=== PATIENT | female | born 1965 | race Caucasian/White ===

== ENCOUNTER 2019-06-30 17:12 | Emergency (ER) | payer OTHER, SELFPAY ==
--- NOTE | ~2019-06-30 | XR_ITS ---
EXAMINATION: XR hip LT 2V w AP pelvis INDICATION: Left hip pain TECHNIQUE: AP view the pelvis and two views of the left hip are obtained. COMPARISON: None available FINDINGS: Bone alignment is normal. There is no fracture. The soft tissues are unremarkable. IMPRESSION: 1. No acute osseous abnormality. Reviewed, dictated and finalized at location A.
--- NOTE | ~2019-06-30 | XR_ITS ---
EXAMINATION: XR foot LT min 3V DATE: 06/30/2019 18:35 INDICATION: Left foot pain TECHNIQUE: Dorsoplantar, lateral, and 2 oblique views of the left foot were obtained. COMPARISON: None. FINDINGS: A subtle heterotopic ossification is seen lateral to the proximal aspect of the cuboid. Bon e alignment is normal. The soft tissues are unremarkable. IMPRESSION: 1. Subtle osseous fragment near the lateral aspect of the cuboid which may reflect avulsion injury. Reviewed, dictated and finalized at location A. IMPRESSION: 1. Subtle osseous fragment near the lateral aspect of the cuboid which may refl ect avulsion injury.
--- NOTE | ~2019-06-30 | XR_ITS ---
EXAMINATION: XR ankle LT min 3V DATE: 06/30/2019 17:53 INDICATION: Left ankle pain TECHNIQUE: Anteroposterior, lateral, mortise, and additional oblique view of the ankle were obtained. COMPARISON: None. FINDINGS: There is no fracture, dislocation, or subluxation. The bones, soft tissues, and joint space s are normal. IMPRESSION: 1. No acute osseous abnormality. Reviewed, dictated and finalized at location A.
[2019-06-30 17:16] VITALS: BP 124/75; PULSE 96; RESP 16; TEMP 36.8; O2SAT 95
[2019-06-30 19:17] LABS: Basophils Absolute Auto 0.1 K/mm3 (0.0-0.1); Basophils Percent Auto 0.9 % (0.2-1.2); Eosinophils Absolute Auto 0.3 K/mm3 (0-0.3); Eosinophils Percent Auto 3.7 % (0-4.4); Hematocrit 39.3 % (37.0-47.0); Hemoglobin 13.1 g/dL (12.0-15.0); Immature Granulocyte Absolute 0.03 K/mm3 (0.00-0.031); Immature Granulocyte Percent A 0.4 % (0-0.5); Lymphocytes Percent Auto 32.6 % (18.3-44.2); Mean Corpuscular HGB Conc 33.3 g/dl (32-36); Mean Corpuscular Volume 95.9 fl (80-100); Mean Platelet Volume 9.6 fl (7.4-10.4); Monocytes Absolute Auto 0.5 K/mm3 (0.1-0.6); Monocytes Percent Auto 7.9 % (2.6-8.5); Neutrophils Absolute Auto 3.7 K/mm3 (1.3-6.7); Neutrophils Percent Auto 54.5 % (45.5-73.1); Platelet Count Result 233 k/mm3 (150-375); Red Cell Distribution Width 13.8 % (11.5-14.5); White Blood Count 6.7 K/mm3 (4.5-10.0)
[2019-06-30 19:29] LABS: D Dimer 0.31 ug/mL (<0.48)
[2019-06-30 19:35] LABS: Blood Urea Nitrogen 12 mg/dL (7-17); CRP < 0.5 mg/dL (<1.0); Calcium 8.7 mg/dL (8.4-10.2); Carbon Dioxide 30 mmol/L (22-30); Chloride 100 mmol/L (98-107); Estimated CRCL calculation 62 ml/min; Estimated Glomerular Filt Rate > 60; Glucose 80 mg/dL (65-105); Potassium 3.5 mmol/L (3.4-5.0); Sodium 137 mmol/L (137-145)
[2019-06-30 19:52] LABS: Erythrocyte Sedimentation Rate 14 mm/hr (0-20)
--- NOTE | 2019-06-30 20:57 | ED.LOWEXIN ---
HPI - Extremity Injury (Lower) General Chief Complaint: Extremity Injury, Lower Stated Complaint: left foot injury Time Seen by Provider: 06/30/19 17:39 Source: patient Mode of arrival: ambulatory Limitations: no limitations History of Present Illness HPI Narrative: This is a 54-year-old female that presents the emergency department after fall a week ago with left ankle pain. Reports she tripped going up the steps. Reports since she has had increasing swelling and pain in the left foot and ankle. Also reports left hip pain. She has been using a cane to ambulate. Denies hitting her head, loss of consciousness, other injuries, numbness, or decreased range of motion. Related Data Home Medications Medication Instructions Recorded Confirmed albuterol sulfate INHALATION 06/30/19 budesonide-formoterol [Symbicort] INHALATION 06/30/19 escitalopram oxalate mg 06/30/19 gabapentin 06/30/19 montelukast mg 06/30/19 tiotropium bromide [Spiriva with INHALATION 06/30/19 HandiHaler] trazodone 06/30/19 Allergies Allergy/AdvReac Type Severity Reaction Status Date / Time No Known Allergies Allergy Verified 06/30/19 17:22 Review of Systems Review of Systems: Narrative: CONSTITUTIONAL: Denies fever EYES: Denies visual changes GASTROINTESTINAL: Denies vomiting SKIN: Reports erythema MUSCULOSKELETAL: Reports joint pain, and myalgia. NEUROLOGIC: Denies headache, numbness, or weakness. All systems reviewed & are unremarkable except as noted in HPI and below PMFSH Past Medical History Medical History (Updated 06/30/19 @ 21:04 by Stefany Potter PA-C) History of COPD History of depression Exam Narrative: Exam Narrative: GENERAL: Well-appearing, well-nourished, and in no acute distress. HEAD: Normocephalic, atraumatic. EYES: PERRLA and EOMI. ENT: Nares clear, no rhinorrhea or epistaxis. Mucous membranes moist. Oropharynx without tonsillar hypertrophy exudate or other lesions. Bilateral TMs pearly merlos non-bulging NECK: Supple. No adenopathy or masses. No midline spinal tenderness CHEST: Clear to auscultation. No respiratory distress. No wheezes rales or rhonchi HEART: Regular rate and rhythm. No murmur heard. Normal peripheral pulses. BACK: No midline spinal tenderness EXTREMITIES: Normal range of motion. Mild edema to the left ankle and foot. Mild erythema to the left lateral malleoli. Normal sensation. Normal DP pulses SKIN: Warm, dry, no rash. NEURO: No focal deficits. Alert and oriented x3. PSYCH: Normal mood and affect Course Consultations Consultation #1: Spoke with Dr. Britt about patient who reports patient may be placed in a postop shoe and given crutches. She can follow-up with her primary care doctor. Date: 06/30/19 Time: 21:03 Vital Signs Vital signs: Vital Signs Temperature 98.2 F 06/30/19 17:16 Pulse Rate 96 06/30/19 17:16 Respiratory Rate 16 06/30/19 17:16 Blood Pressure 124/75 06/30/19 17:16 Pulse Oximetry 95 06/30/19 17:16 Temperature 98.2 F 06/30/19 17:16 Pulse Rate 96 06/30/19 17:16 Respiratory Rate 16 06/30/19 17:16 Blood Pressure 124/75 06/30/19 17:16 Pulse Oximetry 95 06/30/19 17:16 MDM - Extremity Injury (Lower) MDM Narrative Medical decision making narrative: Patient presents to the emergency department after an injury 1 week ago with left ankle and left hip pain. Patient is afebrile and nontoxic-appearing. CBC without acute changes. Inflammatory markers are not elevated. D-dimer is not elevated. Left ankle x-rays without acute osseous abnormality. Left foot x-ray shows a subtle osseous fragment at the lateral aspect of the cuboid which may reflect avulsion injury. Left hip/pelvis x-rays without acute changes. Spoke with Dr. Britt about patient who reports patient may be placed in a postop shoe and given crutches. She can follow-up with her primary care doctor. Patient also will be started on oral antibiotic for cellulitis. Patient is
[2019-06-30 21:30] VITALS: BP 104/66; PULSE 87; RESP 16; TEMP 37.1; O2SAT 96
== END 2019-06-30 21:47 | disposition home or self-care (01) ==
PROVIDERS: Physician Assistant; Emergency Provider Emergency Medicine
DX: S93.402A Sprain of unspecified ligament of left ankle, initial encounter (principal); S96.912A Strain of unspecified muscle and tendon at ankle and foot level, left foot, initial encounter; L03.116 Cellulitis of left lower limb; J44.9 Chronic obstructive pulmonary disease, unspecified; F32.9 Major depressive disorder, single episode, unspecified; W10.9XXA Fall (on) (from) unspecified stairs and steps, initial encounter
CPT/HCPCS: 36415; 73502; 73610; 73630; 80048; 85025; 85380; 85652; 86140; 99284; A9270

== ENCOUNTER 2020-05-10 17:15 | Emergency (ER) | payer OTHER, SELFPAY ==
--- NOTE | ~2020-05-10 | XR_ITS ---
EXAMINATION: XR pelvis 1-2V INDICATION: Low back pain TECHNIQUE: AP view the pelvis is obtained. COMPARISON: CT, 10/23/2016 FINDINGS: Bone alignment is normal. There is no fracture. There is mild osteoarthritis of the hips. T he soft tissues are unremarkable. The visualized bowel gas pattern is normal. A moderate volume of co lonic stool is present. IMPRESSION: 1. No fracture identified. Reviewed, dictated and finalized at location A. IMPRESSION: 1. No fracture identified.
--- NOTE | ~2020-05-10 | XR_ITS ---
EXAMINATION: XR lumbar spine 2-3V DATE: 05/10/2020 18:02 INDICATION: Low back pain TECHNIQUE: Anteroposterior and lateral views of the lumbar spine, and cone-down lateral view of the l umbosacral junction were obtained. COMPARISON: CT, 10/23/2016 FINDINGS: There is a superior endplate deformity of L3 vertebral body with approximately 10% loss of anterior vertebral body height. The remaining vertebral body heights are normal. Bone alignment is ma intained. The intervertebral disc space heights are normal. Calcified atherosclerosis is noted. Surgi josé luis clips in the right upper quadrant are likely from prior cholecystectomy. IMPRESSION: 1. Age-indeterminate L3 vertebral body compression fracture, possibly acute, new since the comparison examination. Reviewed, dictated and finalized at location A. IMPRESSION: 1. Age-indeterminate L3 vertebral body compression fracture, possibly acute, ne w since the comparison examination.
[2020-05-10 17:23] VITALS: BP 107/73; PULSE 111; RESP 18; TEMP 36.4; O2SAT 93
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
== END 2020-05-10 18:31 | disposition home or self-care (01) ==
PROVIDERS: Emergency Provider Nurse Practitioner
DX: S32.030A Wedge compression fracture of third lumbar vertebra, initial encounter for closed fracture (principal); V48.5XXA Car driver injured in noncollision transport accident in traffic accident, initial encounter; J44.9 Chronic obstructive pulmonary disease, unspecified; Z85.118 Personal history of other malignant neoplasm of bronchus and lung; Z90.2 Acquired absence of lung [part of]; F41.9 Anxiety disorder, unspecified; F32.9 Major depressive disorder, single episode, unspecified; Z86.73 Personal history of transient ischemic attack (TIA), and cerebral infarction without residual deficits; Z92.21 Personal history of antineoplastic chemotherapy; Z92.3 Personal history of irradiation
CPT/HCPCS: 72100; 72170; 99213; G0463

== ENCOUNTER 2021-04-18 11:43 | Inpatient (IN) | payer OTHER, SELFPAY ==
[2021-04-18] VITALS (26 sets, daily range): BP systolic 94–113; BP diastolic 58–78; PULSE 86–104; RESP 16–30; TEMP 35.8–37.2; O2SAT 81–100; BMI 18.6
--- NOTE | ~2021-04-18 | XR_ITS ---
EXAMINATION: XR chest 1V portable DATE: 04/20/2021 10:45 INDICATION: Shortness of breath TECHNIQUE: frontal view of the chest was obtained. COMPARISON: Chest radiograph dated 04/18/2021 FINDINGS: Hyperexpansion of lungs with increased lucency and architectural distortion in the upper lung zones c onsistent with emphysema. Suture line and surgical clips in the left upper lung zone consistent with prior partial pneumonectomy. New nodular opacity projecting over the left costophrenic angle likely r epresenting a nipple shadow. Calcified nodules in the right midlung zone and calcified right hilar an d mediastinal lymph nodes consistent with old granulomatous disease. Increased interstitial pattern i n the mid and lower lung zones with a few peripheral Xavier B-lines consistent with mild pulmonary ed gee. No pleural effusion or pneumothorax. Heart size is normal. IMPRESSION: 1. Mild pulmonary edema superimposed over emphysema. 2. Nodular opacity projecting over the left costophrenic angle not evident on the recent prior imagin g most consistent with a nipple shadow. Reviewed, dictated and finalized at location A. IMPRESSION: 1. Mild pulmonary edema superimposed over emphysema. 2. Nodular opacity projecting over the left costophrenic angle not evident on t he recent prior imaging most consistent with a nipple shadow.
--- NOTE | ~2021-04-18 | XR_ITS ---
XR chest 1V portable 04/18/2021 12:50 Indication: AP portable chest Procedure: Comparison to multiple prior studies sequentially, with oldest reviewed study dated 2017. Comparison: Comparison to multiple prior studies sequentially, with oldest reviewed study dated 06/28. Findings: There is interstitial edema. Cannot exclude superimposed pneumonia. There is emphysema. No significant effusion or pneumothorax. There are surgical changes in the left upper lung. Impression: 1: Interstitial edema. Cannot exclude superimposed pneumonia. Reviewed, dictated and finalized at location B. Impression: 1: Interstitial edema. Cannot exclude superimposed pneumonia.
--- NOTE | 2021-04-18 11:59 | PC.NURSE ---
Multiple RN tried for IV access and unsuccessful. Ultrasound certified RN at bedside at this time for IV placement.
--- NOTE | 2021-04-18 12:05 | ECG_ITS ---
Measurements Intervals [place] Rate: 95 P: 80 VT: 149 QRS: 59 QRSD: 74 T: 77 QT: 342 QTc: 430 Interpretive Statements SINUS RHYTHM POSSIBLE RIGHT ATRIAL ENLARGEMENT [0.25mV P WAVE] COMPARED TO ECG 08/16/2018 20:02:27 NO SIGNIFICANT CHANGE Electronically Signed On 04-18-2021 14:31:06 CDT by Russell Linda M.D.
--- NOTE | 2021-04-18 12:06 | ED.SOB ---
HPI - SOB/Dyspnea General Chief Complaint: Shortness of Breath/Dyspnea Stated Complaint: dyspnea, chest pain on inspiration Time Seen by Provider: 04/18/21 12:01 Source: RN notes reviewed History of Present Illness HPI Narrative: Patient presents emergency department from home for weakness. Patient states she has not been feeling well for the past 1 week she states has been associated with intermittent headaches subjective fevers, cough productive of yellow sputum intermittent chest pain described as sharp and stabbing and nausea patient states that symptoms have been ongoing for 1 week but she got up and was walking around today and felt more short of breath and came in for further evaluation she denies any measured fevers she states that she has not had a Covid or flu vaccine this year she denies any vomiting diarrhea or any other symptoms patient states she has a history of lung cancer in remission Related Data Home Medications Medication Instructions Recorded Confirmed albuterol sulfate 2 inh INHALATION DIRECTED 06/30/19 05/10/20 budesonide-formoterol [Symbicort] 1 inh INHALATION DIRECTED 06/30/19 05/10/20 escitalopram oxalate 10 mg PO DAILY 06/30/19 05/10/20 montelukast 10 mg PO DAILY 06/30/19 05/10/20 trazodone 50 mg PO DAILY 06/30/19 05/10/20 albuterol sulfate 1.25 mg INHALATION DIRECTED 05/10/20 05/10/20 famotidine 20 mg PO DAILY 05/10/20 05/10/20 Allergies Allergy/AdvReac Type Severity Reaction Status Date / Time adhesive tape AdvReac Rash Verified 04/18/21 11:55 morphine AdvReac Vomiting Verified 04/18/21 11:55 Review of Systems Review of Systems: Gen.: Reports subjective fevers ENT: Denies congestion Respiratory: Ports shortness of breath and cough CV: Ports intermittent chest pain denies palpitations GI: Denies abdominal pain vomiting or diarrhea reports nausea Musculoskeletal: Denies back pain or muscle pain Neuro: Reports generalized weakness Skin: Denies rash Except as documented, all other systems reviewed and negative PMFSH Past Medical History Medical History Acquired absence of lung [part of] Anxiety disorder Asthma Bipolar disorder Compression of trachea due to food in esophagus History of COPD History of depression History of pleural effusion Malignant neoplasm of unspecified part of unspecified bronchus or lung Personal history of antineoplastic chemotherapy Personal history of irradiation Pleurodynia Tachycardia TIA (transient ischemic attack) White matter disease Social History Social History (Updated 04/18/21 @ 12:08 by Altaf Saunders DO) Smoking status: Former smoker Exam Narrative: APPEARANCE: No acute distress, nontoxic, resting in bed EYES: EOMI HEENT: Normocephalic, atraumatic, OMM RESPIRATORY: No respiratory distress Clear to auscultation bilaterally with no rhonchi wheezing or rales. CARDIOVASCULAR: Regular rate and rhythm without murmurs rubs or gallops. ABDOMINAL: Soft, nontender, nondistended, no rebound or guarding MUSCULOSKELETAl: Moves all extremities. No clubbing, cyanosis or edema. NEURO: Awake and alert. Following commands, speech normal, no focal deficits SKIN:: Warm, dry. No rashes lesions or abrasions PSYCHIATRIC: Normal affect/mood, Course Course Emergency Course: Discussed with [facility] [place] for Dr Massey agrees with admission Discussed with patient and family results of workup and diagnosis. Discussed need for admission. Patient and family understand and agree to current treatment plan Vital Signs Vital signs: Vital Signs Pulse Rate 98 04/18/21 11:36 Respiratory Rate 30 H 04/18/21 11:36 Blood Pressure 100/78 04/18/21 11:36 Pulse Oximetry 97 04/18/21 11:36 Pulse Rate 90 04/18/21 13:27 Respiratory Rate 26 H 04/18/21 13:27 Blood Pressure 104/68 04/18/21 13:27 Pulse Oximetry 97 04/18/21 13:27 MDM - SOB/Dyspnea Lab Data Result diagrams: 04/18/21 12:22
[2021-04-18 12:29] LABS: Basophils Absolute Auto 0.1 K/mm3 (0.0-0.1); Basophils Percent Auto 0.3 % (0.2-1.2); Eosinophils Absolute Auto 0.1 K/mm3 (0-0.3); Eosinophils Percent Auto 0.3 % (0-4.4); Hematocrit 48.7 % (37.0-47.0); Hemoglobin 16.1 g/dL (12.0-15.0); Immature Granulocyte Absolute 0.07 K/mm3 (0.00-0.031); Immature Granulocyte Percent A 0.4 % (0-0.5); Immature Platelet Fraction Pct 4.7 % (0.9-11.2); Lymphocytes Percent Auto 8.8 % (18.3-44.2); Mean Corpuscular HGB Conc 33.1 g/dl (32-36); Mean Corpuscular Hemoglobin 31.7 pg (26-34); Mean Corpuscular Volume 95.9 fl (80-100); Mean Platelet Volume 9.6 fl (7.4-10.4); Monocytes Absolute Auto 1.1 K/mm3 (0.1-0.6); Monocytes Percent Auto 6.3 % (2.6-8.5); Neutrophils Absolute Auto 15.3 K/mm3 (1.3-6.7); Neutrophils Percent Auto 83.9 % (45.5-73.1); Platelet Count Result 319 k/mm3 (150-375); Red Blood Count 5.08 M/mm3 (4.2-5.4); Red Cell Distribution Width 14.4 % (11.5-14.5); White Blood Count 18.2 K/mm3 (4.5-10.0)
[2021-04-18] MEDS: ALBUTEROL SULFATE NEB 2.5 MG/0.5 ML INH 5 MG INHALATION ×3 (12:30→20:30)
[2021-04-18] MEDS: IPRATROPIUM BR 0.02% INH SOLN 0.5 MG/2.5 ML VIAL INHALATION ×3 (12:30→20:30)
[2021-04-18 12:39] LABS: Alanine Aminotransferase 14 U/L (4-35); Albumin Level 4.6 g/dL (3.5-5.1); Alkaline Phosphatase 130 U/L (38-126); Anion Gap 10 mmol/L (8-16); Aspartate Amino Transferase 24 U/L (14-36); Bilirubin,Total 1.1 mg/dL (0.2-1.3); Blood Urea Nitrogen 16 mg/dL (7-17); Calcium 9.2 mg/dL (8.4-10.2); Carbon Dioxide 26 mmol/L (22-30); Chloride 99 mmol/L (98-107); Estimated CRCL calculation 61 ml/min; Estimated Glomerular Filt Rate > 60; Glucose 123 mg/dL (65-110); INR 1.1; Partial Thromboplastin Time 24.7 SECONDS (22.3-36.8); Potassium 4.1 mmol/L (3.4-5.0); Prothrombin Time 13.4 Seconds (11.1-14.7); Sodium 135 mmol/L (137-145)
[2021-04-18 12:51] LABS: NT Pro B Type Natriuretic Pept 1180 pg/mL (5-100); Troponin I < 0.012 ng/mL (0.000-0.034)
[2021-04-18 12:54] LABS: Influenza A QL RT-PCR Negative (Negative); Influenza B QL RT-PCR Negative (Negative); SARS-CoV-2 RNA PCR Negative
--- NOTE | 2021-04-18 13:19 | PC.NURSE ---
pt not able to urinate at this time. pt refusing straight catheter.
[2021-04-18 13:49] LABS: Lactic Acid Reflex 1.4 mmol/L (0.7-2.1)
--- NOTE | 2021-04-18 13:54 | PC.NURSE ---
Assumed care of pt at this time. Denies any pain or discomfort. Provided urine sample and will be sent to lab. IV meds in progress.
[2021-04-18 14:13] LABS: Add Urine Microscopic? YES; Appearance Urine Cloudy (Clear); Bacteria Urine Trace /hpf; Bilirubin Urine Negative (Negative); Blood Urine 1+ (Negative); Color Urine Amber (Yellow); Glucose Urine UA Negative (Negative); Ketones Urine Negative (Negative); Leukocyte Esterase Ur 2+ LEU/UL (Negative); Mucus Urine Heavy /lpf; Nitrate Urine Positive (Negative); Protein Urine 1+ mg/dL (Negative); RBC Urine 21-50 /hpf (0-2); Specific Grav Ur 1.019 (1.001-1.035); Squamous Epithelial Cell Urine Many /hpf (Few); Transitional Epi Cells Urine Rare /hpf (None Seen); WBC Urine >75 /hpf
--- NOTE | 2021-04-18 15:09 | PM.IMHP ---
H&P: HPI History of Present Illness Date/Time: Patient was placed observation status for expected length of stay less than 23 hours for management, will plan to re-evaluate tomorrow for improvement. 04/18/21 15:09 Chief Complaint: Shortness of breath Narrative: Ms. Robison is a 55-year-old female who presented emergency room with complaints of shortness of breath that has gotten worse today. Patient states she has a known history of small-cell lung carcinoma and COPD and does have chronic shortness of breath, but patient states she was walking today and became abnormally short of breath. Patient denies any cough with sputum production outside of her normal cough with COPD. Patient states she has had hot flashes, but she is going through menopause. Patient denies any fever at home. Patient denies any chest pain, lightheadedness, dizziness, syncopal, or near syncopal episodes. Patient denies any dysuria, hematuria, frequency, or urgency. Patient states her only history that she is aware of is small cell lung carcinoma, COPD, and esophageal stricture post radiation. Patient states he has esophageal stricture did resolve on its own but at times she will have some dysphagia. Patient states that she has had a left lung lobectomy and it was performed at this hospital but I unfortunately cannot find any records of that at this time. Chest x-ray does show surgical changes toe left upper lobe. After looking through previous records patient does have a history of TIA and was seen in the emergency room but left against medical advice. Review of Systems Review of Systems: A 12 point review of systems was completed patient all pertinent positive and negative per HPI the remainder are unremarkable. [facility] Past Medical History Medical History (Updated 04/18/21 @ 15:19 by Priya Philippe APRN) Acquired absence of lung [part of] Anxiety disorder Asthma Bipolar disorder Compression of trachea due to food in esophagus History of COPD History of depression History of pleural effusion Malignant neoplasm of unspecified part of unspecified bronchus or lung Personal history of antineoplastic chemotherapy Personal history of irradiation Pleurodynia Tachycardia TIA (transient ischemic attack) White matter disease Surgical History Surgical History (Updated 04/18/21 @ 15:17 by Priya Philippe APRN) Status post lobectomy of lung Left lung Social History Social History (Updated 04/18/21 @ 12:08 by Altaf Saunders DO) Smoking status: Former smoker Meds Home Medications and Allergies Home Medications Medication Instructions Recorded Confirmed Type albuterol sulfate 2 inh INHALATION DIRECTED 06/30/19 05/10/20 History budesonide-formoterol [Symbicort] 1 inh INHALATION DIRECTED 06/30/19 05/10/20 History escitalopram oxalate 10 mg PO DAILY 06/30/19 05/10/20 History montelukast 10 mg PO DAILY 06/30/19 05/10/20 History trazodone 50 mg PO DAILY 06/30/19 05/10/20 History albuterol sulfate 1.25 mg INHALATION DIRECTED 05/10/20 05/10/20 History famotidine 20 mg PO DAILY 05/10/20 05/10/20 History hydrocodone-acetaminophen 1 tablet PO Q6H PRN #15 tablet 05/10/20 Rx Allergies Allergy/AdvReac Type Severity Reaction Status Date / Time adhesive tape AdvReac Rash Verified 04/18/21 11:55 morphine AdvReac Vomiting Verified 04/18/21 11:55 Vital Signs Vital Signs - 24 hr 04/18/21 11:36 04/18/21 11:55 04/18/21 11:56 Temperature Pulse Rate 98 Respiratory Rate 30 H Blood Pressure 100/78 Pulse Oximetry 97 96 96 04/18/21 11:58 04/18/21 12:27 04/18/21 12:31 Temperature Pulse Rate 95 97 97 Respiratory Rate 23 H 18 Blood Pressure 100/78 Pulse Oximetry 96 04/18/21 12:37 04/18/21 13:27 04/18/21 13:55 Temperature 37.2 C Pulse Rate 95 90 91 Respiratory Rate 18 26 H 18 Blood Pressure 104/68 107/77 Pulse Oximetry 97 95 04/18/21 14:20 04/18/21 14:27 Temperature Pulse Rate 88 87 Respirat
--- NOTE | 2021-04-18 15:15 | PC.NURSE ---
@1430 iv line in rt cephalic infiltrated. Pt hard stick. Attempted another iv access with no success
--- NOTE | 2021-04-18 15:16 | PC.NURSE ---
New IV ACCESS IN LEFT CEPHALIC
[2021-04-18] MEDS: diphenhydrAMINE HCl INJ 50 MG/ML VIAL 25 MG IV PUSH (15:54)
--- NOTE | 2021-04-18 15:57 | PC.NURSE ---
Pruritic erythematous rash noted above IV site to left fore arm. EDP notified, meds ordered and administered and itching relieved per pt.
[2021-04-18] MEDS: SODIUM CHLORIDE 0.9% IV 1,000 ML 80 ML IV CONT (17:20)
[2021-04-19] VITALS (9 sets, daily range): BP systolic 93–108; BP diastolic 58–67; PULSE 84–107; RESP 16–18; TEMP 36.3–36.7; O2SAT 92–97
--- NOTE | 2021-04-19 | ECHO_ITS ---
Patient Info Name: Alee Robison Age: 55 years : 1965 Gender: Female Ht: 67 in Wt: 118 lbs BSA: 1.58 m2 HR: 94 bpm BP: 94 / 58 mmHg Technical Quality: Good Exam Date: 04/19/2021 1:37 PM Exam Location: [facility] Patient Status: Outpatient Admit Date: 04/18/2021 Staff Ordering Physician: Daljit Cam [employer] Technician: Mumtaz Christine RDCS, RT Attending Provider: Cassius Massey MD Referring Physician: Tutu MORRIS; Exam Type: CA echo doppler color flow Study Info Indications R06.02 - Shortness of breath Complete two-dimensional, color flow and Doppler transthoracic echocardiogram is performed. Strain analysis performed. Summary 1. Complete two-dimensional, color flow and Doppler transthoracic echocardiogram is performed. 2. Left ventricular chamber dimension is normal. 3. Left ventricular systolic function is normal, estimated at 60-65%. 4. The left ventricular diastolic function is grade I diastolic dysfunction. 5. E/e' 6 is not elevated. 6. Global longitudinal strain is normal at -18.9%. 7. There is mild aortic valve regurgitation. Left Ventricle E/e' 6 is not elevated. Global longitudinal strain is normal at -18.9%. Left ventricular chamber dimension is normal. Left ventricular systolic function is normal, estimated at 60-65%. The left ventricular diastolic function is grade I diastolic dysfunction. Right Ventricle Right ventricular systolic function is normal and with normal TAPSE 1.9 cm. Right ventricular chamber dimension is normal. Left Atria Left atrial chamber dimension is normal. Right Atria Right atrial chamber dimension is normal. Aortic Valve The aortic valve is trileaflet. There is no aortic valve stenosis. There is mild aortic valve regurgitation. Pulmonic Valve There is no pulmonic regurgitation. Mitral Valve There is no mitral valve stenosis. There is no mitral valve regurgitation. Tricuspid Valve There is no tricuspid valve regurgitation. Pericardium/Pleural There is no pericardial effusion. Inferior Vena Cava Normal inferior vena cava with >50% collapse upon inspiration consistent with normal right atrial pressure, 5 mmHg. Aorta The aortic root size at the sinus of Valsalva is normal. Left Ventricular Outflow Tract Name Value Normal LVOT 2D LVOT Diameter 1.9 cm LVOT Doppler LVOT Peak Gradient 4 mmHg LVOT Mean Gradient 2 mmHg LVOT VTI 21 cm LVOT VTI/AV VTI Ratio 1.0 LVOT Stroke Volume 63 ml LVOT CO 6.0 l/min LVOT CI 3.8 l/min/m2 Mitral Valve Name Value Normal MV Doppler MV Decel [place] 204 cm/s2 MV PHT
[2021-04-19] MEDS: ACETAMINOPHEN 325 MG TABLET 650 MG PO ×2 (03:56→19:45)
[2021-04-19 06:17] LABS: Basophils Percent Auto 0.3 % (0.2-1.2); Eosinophils Absolute Auto 0.2 K/mm3 (0-0.3); Eosinophils Percent Auto 2.1 % (0-4.4); Hematocrit 36.8 % (37.0-47.0); Immature Granulocyte Absolute 0.05 K/mm3 (0.00-0.031); Immature Granulocyte Percent A 0.5 % (0-0.5); Lymphocytes Percent Auto 19.4 % (18.3-44.2); Mean Corpuscular HGB Conc 32.6 g/dl (32-36); Mean Corpuscular Hemoglobin 31.8 pg (26-34); Mean Corpuscular Volume 97.6 fl (80-100); Mean Platelet Volume 9.7 fl (7.4-10.4); Monocytes Absolute Auto 0.8 K/mm3 (0.1-0.6); Monocytes Percent Auto 8.1 % (2.6-8.5); Neutrophils Absolute Auto 6.8 K/mm3 (1.3-6.7); Neutrophils Percent Auto 69.6 % (45.5-73.1); Platelet Count Result 276 k/mm3 (150-375); Red Blood Count 3.77 M/mm3 (4.2-5.4); Red Cell Distribution Width 14.7 % (11.5-14.5); White Blood Count 9.8 K/mm3 (4.5-10.0)
[2021-04-19 06:26] LABS: Anion Gap 5 mmol/L (8-16); Blood Urea Nitrogen 20 mg/dL (7-17); Calcium 7.8 mg/dL (8.4-10.2); Carbon Dioxide 26 mmol/L (22-30); Chloride 104 mmol/L (98-107); Estimated CRCL calculation 60 ml/min; Estimated Glomerular Filt Rate > 60; Glucose 104 mg/dL (65-110); Potassium 4.1 mmol/L (3.4-5.0); Sodium 135 mmol/L (137-145)
[2021-04-19] MEDS: SODIUM CHLORIDE 0.9% IV 1,000 ML 80 ML IV CONT (07:34)
[2021-04-19] MEDS: ENOXAPARIN 40 MG/0.4 ML SYRINGE SUB-Q (07:55)
[2021-04-19] MEDS: IPRATROPIUM BR 0.02% INH SOLN 0.5 MG/2.5 ML VIAL INHALATION ×3 (08:05→20:08)
[2021-04-19] MEDS: ALBUTEROL SULFATE NEB 2.5 MG/0.5 ML INH 5 MG INHALATION ×3 (08:05→20:08)
--- NOTE | 2021-04-19 11:00 | PM.IMPN ---
Progress Note: A&P Assessment and Plan (1) Community acquired pneumonia: Code(s): J18.9 - Pneumonia, unspecified organism Status: Acute Assessment and Plan: Complaints of shortness of breath with very light activity Chest x-ray shows possible superimposed pneumonia and interstitial edema white blood cell count 18.2 upon admission trending down an is 9.8 No notable hypoxia, and no oxygen needs IV levaquin Trend SPO2 (2) Sepsis: Code(s): A41.9 - Sepsis, unspecified organism Status: Acute Assessment and Plan: Patient did meet sepsis criteria with leukocytosis, tachycardia, tachypnea, and source of infection No noted hypotension Qsofa is 0 No aggressive hydration needed IV antibiotics on board WBC tending down (3) Urinary tract infection: Code(s): N39.0 - Urinary tract infection, site not specified Status: Acute Assessment and Plan: UA Cloudy valerio, Nitrate positives, 2+ leukocytes esterase, WBC >75, Heavy mucous Levaquin on board Urine culture pending Tailor antibiotics to culture results (4) CHF (congestive heart failure): Code(s): I50.9 - Heart failure, unspecified Status: Acute Assessment and Plan: Reports shortness of breath Chest xray shows interstitial edema Will get echo to determine systolic or diastolic dysfunction BNP elevated at 1180 Daily weights Trend urine output Not on home diuretics Give one dose of lasix IV see if it helps Time Spent With Patient Time with patient: Greater than 35 minutes Subjective Date/time seen: 04/19/21 11:00 Interval history: 04/18/21 15:09 Narrative: Ms. Robison is a 55-year-old female who presented emergency room with complaints of shortness of breath that has gotten worse today. Patient states she has a known history of small-cell lung carcinoma and COPD and does have chronic shortness of breath, but patient states she was walking today and became abnormally short of breath. Patient denies any cough with sputum production outside of her normal cough with COPD. Patient states she has had hot flashes, but she is going through menopause. Patient denies any fever at home. Patient denies any chest pain, lightheadedness, dizziness, syncopal, or near syncopal episodes. Patient denies any dysuria, hematuria, frequency, or urgency. Patient states her only history that she is aware of is small cell lung carcinoma, COPD, and esophageal stricture post radiation. Patient states he has esophageal stricture did resolve on its own but at times she will have some dysphagia. Patient states that she has had a left lung lobectomy and it was performed at this hospital but I unfortunately cannot find any records of that at this time. Chest x-ray does show surgical changes toe left upper lobe. After looking through previous records patient does have a history of TIA and was seen in the emergency room but left against medical advice. 04/19/21 11:00. Patient stated that she is doing alright, however, she looks like she is still not feeling well. She denies having any dyspnea on exertion, and stated that she has not gotten up since she has been here. She then did have a coughing spell and really lost her breath, but did recover very quickly. She denies having any productivity with her coughing. She also denies having any further chest pain, nausea, vomiting. Review of Systems Review of Systems: All systems reviewed & are unremarkable except as noted in HPI and below Exam Const: General: cooperative, healthy appearing, no acute distress, well developed, alert and awake Nutritional Appearance: well nourished Orientation/consciousness: patient oriented x3 Limitations: no limitations HENMT: Head: normal to inspection Ears: hearing grossly normal bilaterally General nose exam: Normal external nose present Mouth: Yes Normal oral and palatal mucosa
[2021-04-19] MEDS: FUROSEMIDE INJ 40 MG/4 ML VIAL IV PUSH (13:30)
[2021-04-19] MEDS: NICOTINE (*PBKC) 14 MG PATCH 1 PATCH TRANSDERM (15:54)
--- NOTE | 2021-04-19 16:51 | PC.NURSE ---
reported UC to provider Samy Cam, kasandra velasquezing, pt currently on Levaquin.
[2021-04-20] VITALS (12 sets, daily range): BP systolic 94–112; BP diastolic 56–77; PULSE 92–112; RESP 16–24; TEMP 35.7–36.6; O2SAT 94–96
[2021-04-20] MEDS: IPRATROPIUM BR 0.02% INH SOLN 0.5 MG/2.5 ML VIAL INHALATION ×3 (02:10→13:40)
[2021-04-20] MEDS: ALBUTEROL SULFATE NEB 2.5 MG/0.5 ML INH 5 MG INHALATION ×3 (02:10→13:40)
[2021-04-20 06:20] LABS: Basophils Absolute Auto 0.1 K/mm3 (0.0-0.1); Basophils Percent Auto 0.7 % (0.2-1.2); Eosinophils Absolute Auto 0.3 K/mm3 (0-0.3); Eosinophils Percent Auto 3.7 % (0-4.4); Hematocrit 38.3 % (37.0-47.0); Hemoglobin 12.9 g/dL (12.0-15.0); Immature Granulocyte Absolute 0.04 K/mm3 (0.00-0.031); Immature Granulocyte Percent A 0.6 % (0-0.5); Lymphocytes Absolute Auto 1.98 K/mm3 (0.9-3.2); Lymphocytes Percent Auto 29.1 % (18.3-44.2); Mean Corpuscular HGB Conc 33.7 g/dl (32-36); Mean Platelet Volume 9.6 fl (7.4-10.4); Monocytes Absolute Auto 0.8 K/mm3 (0.1-0.6); Neutrophils Absolute Auto 3.7 K/mm3 (1.3-6.7); Neutrophils Percent Auto 54.9 % (45.5-73.1); Platelet Count Result 306 k/mm3 (150-375); Red Blood Count 4.03 M/mm3 (4.2-5.4); Red Cell Distribution Width 14.5 % (11.5-14.5); White Blood Count 6.8 K/mm3 (4.5-10.0)
[2021-04-20 07:04] LABS: Alanine Aminotransferase 9 U/L (4-35); Albumin Level 3.7 g/dL (3.5-5.1); Alkaline Phosphatase 77 U/L (38-126); Anion Gap 8 mmol/L (8-16); Aspartate Amino Transferase 20 U/L (14-36); Bilirubin,Total 0.3 mg/dL (0.2-1.3); Blood Urea Nitrogen 19 mg/dL (7-17); Calcium 8.5 mg/dL (8.4-10.2); Carbon Dioxide 29 mmol/L (22-30); Chloride 99 mmol/L (98-107); Estimated CRCL calculation 60 ml/min; Estimated Glomerular Filt Rate > 60; Glucose 102 mg/dL (65-110); Magnesium 1.8 mg/dL (1.6-2.3); Potassium 3.8 mmol/L (3.4-5.0); Sodium 136 mmol/L (137-145)
[2021-04-20] MEDS: MONTELUKAST SODIUM 10 MG TABLET PO (08:04)
[2021-04-20] MEDS: ESCITALOPRAM OXALATE 10 MG TABLET PO (08:05)
[2021-04-20] MEDS: NICOTINE (*PBKC) 14 MG PATCH 1 PATCH TRANSDERM (08:05)
[2021-04-20] MEDS: ENOXAPARIN 40 MG/0.4 ML SYRINGE SUB-Q (08:05)
[2021-04-20] MEDS: FAMOTIDINE 20 MG TABLET PO (08:05)
--- NOTE | 2021-04-20 10:15 | PM.IMPN ---
Progress Note: A&P Assessment and Plan (1) Community acquired pneumonia: Code(s): J18.9 - Pneumonia, unspecified organism Status: Acute Assessment and Plan: Complaints of shortness of breath with very light activity Chest x-ray shows possible superimposed pneumonia and interstitial edema white blood cell count 18.2 upon admission trending down an is 6.8 No notable hypoxia, and no oxygen needs IV levaquin Trend SPO2 (2) Sepsis: Code(s): A41.9 - Sepsis, unspecified organism Status: Acute Assessment and Plan: Patient did meet sepsis criteria with leukocytosis, tachycardia, tachypnea, and source of infection No noted hypotension Qsofa is 0 No aggressive hydration needed IV antibiotics on board WBC tending down (3) Urinary tract infection: Code(s): N39.0 - Urinary tract infection, site not specified Status: Acute Assessment and Plan: UA Cloudy valerio, Nitrate positives, 2+ leukocytes esterase, WBC >75, Heavy mucous Levaquin on board Urine culture Ecoli Antibiotics appropriate at this time (4) CHF (congestive heart failure): Code(s): I50.9 - Heart failure, unspecified Status: Acute Assessment and Plan: Reports shortness of breath Chest xray shows interstitial edema Will get echo to determine systolic or diastolic dysfunction BNP elevated at 1180 Daily weights Trend urine output Not on home diuretics Give one dose of lasix IV see if it helps, repeat one more time Time Spent With Patient Time with patient: Greater than 35 minutes Subjective Date/time seen: 04/20/21 1015 Interval history: 04/18/21 15:09 Narrative: Ms. Robison is a 55-year-old female who presented emergency room with complaints of shortness of breath that has gotten worse today. Patient states she has a known history of small-cell lung carcinoma and COPD and does have chronic shortness of breath, but patient states she was walking today and became abnormally short of breath. Patient denies any cough with sputum production outside of her normal cough with COPD. Patient states she has had hot flashes, but she is going through menopause. Patient denies any fever at home. Patient denies any chest pain, lightheadedness, dizziness, syncopal, or near syncopal episodes. Patient denies any dysuria, hematuria, frequency, or urgency. Patient states her only history that she is aware of is small cell lung carcinoma, COPD, and esophageal stricture post radiation. Patient states he has esophageal stricture did resolve on its own but at times she will have some dysphagia. Patient states that she has had a left lung lobectomy and it was performed at this hospital but I unfortunately cannot find any records of that at this time. Chest x-ray does show surgical changes toe left upper lobe. After looking through previous records patient does have a history of TIA and was seen in the emergency room but left against medical advice. 04/19/21 11:00. Patient stated that she is doing alright, however, she looks like she is still not feeling well. She denies having any dyspnea on exertion, and stated that she has not gotten up since she has been here. She then did have a coughing spell and really lost her breath, but did recover very quickly. She denies having any productivity with her coughing. She also denies having any further chest pain, nausea, vomiting. 04/20/21 1015 Patient was lying in bed. Patient stated that she just does not have any energy and she is very weak today. She also stated that she has a headache and she has been sweating a lot. She stated that her day is spent very low energy and she needs to get the shower however she just does not feel like it. She does feel nauseated at times however she has not vomited. She does state that her breathing is getting better and that she is able to walk to the bathroom. Patient юлия
[2021-04-20] MEDS: FUROSEMIDE INJ 40 MG/4 ML VIAL IV PUSH (10:51)
--- NOTE | 2021-04-20 14:37 | ECG_ITS ---
Measurements Intervals [place] Rate: 107 P: 75 AR: 148 QRS: 59 QRSD: 81 T: 73 QT: 327 QTc: 438 Interpretive Statements SINUS TACHYCARDIA ABNORMAL RHYTHM ECG MINOR NONSPECIFIC ST CHANGES COMPARED TO ECG 04/18/2021 11:46:44 SINUS TACHYCARDIA NOW PRESENT Electronically Signed On 04-20-2021 20:27:29 CDT by Uzma Sampson M.D.
[2021-04-20] MEDS: ACETAMINOPHEN 325 MG TABLET 650 MG PO (15:10)
[2021-04-20 15:21] LABS: Troponin I < 0.012 ng/mL (0.000-0.034)
[2021-04-20 18:29] LABS: Troponin I < 0.012 ng/mL (0.000-0.034)
--- NOTE | 2021-04-20 18:43 | PC.NURSE ---
Patient report of chest pain discussed with provider. Tylenol given, EKG done and labs entered, results per chart.
[2021-04-20] MEDS: ONDANSETRON INJ 4 MG/2 ML VIAL IV PUSH (21:11)
[2021-04-20 21:19] LABS: Troponin I < 0.012 ng/mL (0.000-0.034)
[2021-04-21] VITALS (8 sets, daily range): BP systolic 102–113; BP diastolic 65–80; PULSE 86–98; RESP 16–20; TEMP 36.2–36.4; O2SAT 91–95
[2021-04-21] MEDS: diphenhydrAMINE HCl INJ 50 MG/ML VIAL 25 MG IV PUSH ×2 (00:36→23:15)
[2021-04-21 06:49] LABS: Basophils Absolute Auto 0.1 K/mm3 (0.0-0.1); Basophils Percent Auto 1.1 % (0.2-1.2); Eosinophils Absolute Auto 0.4 K/mm3 (0-0.3); Eosinophils Percent Auto 5.9 % (0-4.4); Hematocrit 40.4 % (37.0-47.0); Hemoglobin 13.4 g/dL (12.0-15.0); Immature Granulocyte Absolute 0.02 K/mm3 (0.00-0.031); Immature Granulocyte Percent A 0.3 % (0-0.5); Lymphocytes Absolute Auto 2.03 K/mm3 (0.9-3.2); Lymphocytes Percent Auto 32.2 % (18.3-44.2); Mean Corpuscular HGB Conc 33.2 g/dl (32-36); Mean Corpuscular Hemoglobin 31.5 pg (26-34); Mean Corpuscular Volume 94.8 fl (80-100); Mean Platelet Volume 9.6 fl (7.4-10.4); Monocytes Absolute Auto 0.6 K/mm3 (0.1-0.6); Monocytes Percent Auto 9.4 % (2.6-8.5); Neutrophils Absolute Auto 3.2 K/mm3 (1.3-6.7); Neutrophils Percent Auto 51.1 % (45.5-73.1); Platelet Count Result 335 k/mm3 (150-375); Red Blood Count 4.26 M/mm3 (4.2-5.4); Red Cell Distribution Width 14.4 % (11.5-14.5); White Blood Count 6.3 K/mm3 (4.5-10.0)
[2021-04-21 07:00] LABS: Alanine Aminotransferase 9 U/L (4-35); Albumin Level 3.8 g/dL (3.5-5.1); Alkaline Phosphatase 83 U/L (38-126); Anion Gap 7 mmol/L (8-16); Aspartate Amino Transferase 18 U/L (14-36); Bilirubin,Total 0.3 mg/dL (0.2-1.3); Blood Urea Nitrogen 25 mg/dL (7-17); Calcium 8.8 mg/dL (8.4-10.2); Carbon Dioxide 31 mmol/L (22-30); Chloride 97 mmol/L (98-107); Estimated CRCL calculation 45 ml/min; Estimated Glomerular Filt Rate 52; Glucose 103 mg/dL (65-110); Magnesium 1.8 mg/dL (1.6-2.3); Potassium 3.8 mmol/L (3.4-5.0); Sodium 135 mmol/L (137-145)
[2021-04-21] MEDS: ESCITALOPRAM OXALATE 10 MG TABLET PO (08:15)
[2021-04-21] MEDS: FAMOTIDINE 20 MG TABLET PO (08:15)
[2021-04-21] MEDS: MONTELUKAST SODIUM 10 MG TABLET PO (08:15)
[2021-04-21] MEDS: IPRATROPIUM BR 0.02% INH SOLN 0.5 MG/2.5 ML VIAL INHALATION ×2 (08:27→14:07)
[2021-04-21] MEDS: ALBUTEROL SULFATE NEB 2.5 MG/0.5 ML INH 5 MG INHALATION ×2 (08:27→14:07)
--- NOTE | 2021-04-21 10:00 | PM.IMPN ---
Progress Note: A&P Assessment and Plan (1) Community acquired pneumonia: Code(s): J18.9 - Pneumonia, unspecified organism Status: Acute Assessment and Plan: Complaints of shortness of breath with very light activity Chest x-ray shows possible superimposed pneumonia and interstitial edema white blood cell count 18.2 upon admission trending down an is 6.8 No notable hypoxia, and no oxygen needs IV levaquin Trend SPO2 (2) Sepsis: Code(s): A41.9 - Sepsis, unspecified organism Status: Acute Assessment and Plan: Patient did meet sepsis criteria with leukocytosis, tachycardia, tachypnea, and source of infection No noted hypotension Qsofa is 0 No aggressive hydration needed IV antibiotics on board WBC tending down (3) Urinary tract infection: Code(s): N39.0 - Urinary tract infection, site not specified Status: Acute Assessment and Plan: UA Cloudy valerio, Nitrate positives, 2+ leukocytes esterase, WBC >75, Heavy mucous Levaquin on board, due to patient allergy to ceftriaxone Urine culture Ecoli Antibiotics appropriate at this time (4) CHF (congestive heart failure): Code(s): I50.9 - Heart failure, unspecified Status: Acute Assessment and Plan: Reports shortness of breath Chest xray shows interstitial edema Will get echo to determine systolic or diastolic dysfunction BNP elevated at 1180 Daily weights Trend urine output Not on home diuretics Give one dose of lasix IV see if it helps, repeat one more time (5) Chest pain: Code(s): R07.9 - Chest pain, unspecified Status: Acute Assessment and Plan: Reports of sternal chest pain Trops negative x 3 Chest xray shows pulmonary edema Lasix given Add aspirin Time Spent With Patient Time with patient: Greater than 35 minutes Subjective Date/time seen: 04/21/21 10:00 Interval history: 04/18/21 15:09 Narrative: Ms. Robison is a 55-year-old female who presented emergency room with complaints of shortness of breath that has gotten worse today. Patient states she has a known history of small-cell lung carcinoma and COPD and does have chronic shortness of breath, but patient states she was walking today and became abnormally short of breath. Patient denies any cough with sputum production outside of her normal cough with COPD. Patient states she has had hot flashes, but she is going through menopause. Patient denies any fever at home. Patient denies any chest pain, lightheadedness, dizziness, syncopal, or near syncopal episodes. Patient denies any dysuria, hematuria, frequency, or urgency. Patient states her only history that she is aware of is small cell lung carcinoma, COPD, and esophageal stricture post radiation. Patient states he has esophageal stricture did resolve on its own but at times she will have some dysphagia. Patient states that she has had a left lung lobectomy and it was performed at this hospital but I unfortunately cannot find any records of that at this time. Chest x-ray does show surgical changes toe left upper lobe. After looking through previous records patient does have a history of TIA and was seen in the emergency room but left against medical advice. 04/19/21 11:00. Patient stated that she is doing alright, however, she looks like she is still not feeling well. She denies having any dyspnea on exertion, and stated that she has not gotten up since she has been here. She then did have a coughing spell and really lost her breath, but did recover very quickly. She denies having any productivity with her coughing. She also denies having any further chest pain, nausea, vomiting. 04/20/21 1015 Patient was lying in bed. Patient stated that she just does not have any energy and she is very weak today. She also stated that she has a headache and she has been sweating a lot. She stated that h
--- NOTE | 2021-04-21 10:00 | P.PNIM_ITS ---
Progress Note: A&P Assessment and Plan (1) Community acquired pneumonia: Code(s): J18.9 - Pneumonia, unspecified organism Status: Acute Assessment and Plan: * Complaints of shortness of breath with very light activity * Chest x-ray shows possible superimposed pneumonia and interstitial edema * white blood cell count 18.2 upon admission trending down an is 6.8 * No notable hypoxia, and no oxygen needs * IV levaquin * Trend SPO2 (2) Sepsis: Code(s): A41.9 - Sepsis, unspecified organism Status: Acute Assessment and Plan: * Patient did meet sepsis criteria with leukocytosis, tachycardia, tachypnea, and source of infection * No noted hypotension * Qsofa is 0 * No aggressive hydration needed * IV antibiotics on board * WBC tending down (3) Urinary tract infection: Code(s): N39.0 - Urinary tract infection, site not specified Status: Acute Assessment and Plan: * UA Cloudy valerio, Nitrate positives, 2+ leukocytes esterase, WBC >75, Heavy mucous * Levaquin on board, due to patient allergy to ceftriaxone * Urine culture Ecoli * Antibiotics appropriate at this time (4) CHF (congestive heart failure): Code(s): I50.9 - Heart failure, unspecified Status: Acute Assessment and Plan: * Reports shortness of breath * Chest xray shows interstitial edema * Will get echo to determine systolic or diastolic dysfunction * BNP elevated at 1180 * Daily weights * Trend urine output * Not on home diuretics * Give one dose of lasix IV see if it helps, repeat one more time (5) Chest pain: Code(s): R07.9 - Chest pain, unspecified Status: Acute Assessment and Plan: * Reports of sternal chest pain * Trops negative x 3 * Chest xray shows pulmonary edema * Lasix given * Add aspirin Time Spent With Patient Time with patient: Greater than 35 minutes Subjective Date/time seen: 04/21/21 10:00 Interval history: 04/18/21 15:09 Narrative: Ms. Robison is a 55-year-old female who presented emergency room with complaints of shortness of breath that has gotten worse today. Patient states she has a known history of small-cell lung carcinoma and COPD and does have chronic shortness of breath, but patient states she was walking today and became abnormally short of breath. Patient denies any cough with sputum production outside of her normal cough with COPD. Patient states she has had hot flashes, but she is going through menopause. Patient denies any fever at home. Patient denies any chest pain, lightheadedness, dizziness, syncopal, or near syncopal episodes. Patient denies any dysuria, hematuria, frequency, or urgency. Patient states her only history that she is aware of is small cell lung carcinoma, COPD, and esophageal stricture post radiation. Patient states he has esophageal stricture did resolve on its own but at times she will have some dysphagia. Patient states that she has had a left lung lobectomy and it was performed at this hospital but I unfortunately cannot find any records of that at this time. Chest x-ray does show surgical changes toe left upper lobe. After looking through previous records patient does have a history of TIA and was seen in the emergency room but left against medical advice. 04/19/21 11:00. Patient stated that she is doing alright, however, she looks like she is still not feeling well. She denies having any dyspnea on exertion, and stated that she has n
[2021-04-21] MEDS: ASPIRIN 81 MG CHEWABLE TABLET PO (15:51)
--- NOTE | 2021-04-22 04:22 | PCRCNOTE ---
Patient refused her 1999 and 199 breathing treatments. Patient states she is breathing fine.
[2021-04-22 06:00] VITALS: BP 108/73; PULSE 94; RESP 18; TEMP 35.5; O2SAT 93
[2021-04-22 06:36] LABS: Basophils Absolute Auto 0.1 K/mm3 (0.0-0.1); Eosinophils Absolute Auto 0.4 K/mm3 (0-0.3); Hematocrit 40.4 % (37.0-47.0); Hemoglobin 12.9 g/dL (12.0-15.0); Immature Granulocyte Absolute 0.03 K/mm3 (0.00-0.031); Immature Granulocyte Percent A 0.4 % (0-0.5); Lymphocytes Percent Auto 27.9 % (18.3-44.2); Mean Corpuscular HGB Conc 31.9 g/dl (32-36); Mean Corpuscular Hemoglobin 32.2 pg (26-34); Mean Corpuscular Volume 100.7 fl (80-100); Mean Platelet Volume 9.5 fl (7.4-10.4); Monocytes Absolute Auto 0.6 K/mm3 (0.1-0.6); Monocytes Percent Auto 8.7 % (2.6-8.5); Neutrophils Absolute Auto 3.8 K/mm3 (1.3-6.7); Platelet Count Result 323 k/mm3 (150-375); Red Blood Count 4.01 M/mm3 (4.2-5.4); Red Cell Distribution Width 14.4 % (11.5-14.5); White Blood Count 6.8 K/mm3 (4.5-10.0)
[2021-04-22 06:56] LABS: Alanine Aminotransferase 8 U/L (4-35); Albumin Level 3.5 g/dL (3.5-5.1); Alkaline Phosphatase 74 U/L (38-126); Anion Gap 6 mmol/L (8-16); Aspartate Amino Transferase 18 U/L (14-36); Bilirubin,Total 0.2 mg/dL (0.2-1.3); Blood Urea Nitrogen 22 mg/dL (7-17); Calcium 8.3 mg/dL (8.4-10.2); Carbon Dioxide 28 mmol/L (22-30); Chloride 99 mmol/L (98-107); Estimated CRCL calculation 60 ml/min; Estimated Glomerular Filt Rate > 60; Glucose 100 mg/dL (65-110); Magnesium 1.8 mg/dL (1.6-2.3); Sodium 133 mmol/L (137-145)
[2021-04-22] MEDS: ASPIRIN 81 MG CHEWABLE TABLET PO (08:25)
[2021-04-22] MEDS: FAMOTIDINE 20 MG TABLET PO (08:25)
[2021-04-22] MEDS: MONTELUKAST SODIUM 10 MG TABLET PO (08:25)
[2021-04-22] MEDS: ESCITALOPRAM OXALATE 10 MG TABLET PO (08:25)
[2021-04-22] MEDS: ENOXAPARIN 40 MG/0.4 ML SYRINGE SUB-Q (08:25)
--- NOTE | 2021-04-22 11:15 | P.DS_ITS ---
DS: Admitting Diagnosis Discharge Date 04/22/21 1115 Admitting Diagnosis Pneumonia/CHF DS: Discharge Diagnosis Discharge Diagnosis (1) Community acquired pneumonia: Code(s): J18.9 - Pneumonia, unspecified organism Status: Acute Assessment and Plan: * Complaints of shortness of breath with very light activity * Chest x-ray shows possible superimposed pneumonia and interstitial edema * white blood cell count 18.2 upon admission trending down an is 6.8 * No notable hypoxia, and no oxygen needs * IV levaquin * Trend SPO2 (2) Sepsis: Code(s): A41.9 - Sepsis, unspecified organism Status: Acute Assessment and Plan: * Patient did meet sepsis criteria with leukocytosis, tachycardia, tachypnea, and source of infection * No noted hypotension * Qsofa is 0 * No aggressive hydration needed * IV antibiotics on board * WBC tending down (3) Urinary tract infection: Code(s): N39.0 - Urinary tract infection, site not specified Status: Acute Assessment and Plan: * UA Cloudy valerio, Nitrate positives, 2+ leukocytes esterase, WBC >75, Heavy mucous * Levaquin on board, due to patient allergy to ceftriaxone * Urine culture Ecoli * Antibiotics appropriate at this time (4) CHF (congestive heart failure): Code(s): I50.9 - Heart failure, unspecified Status: Acute Assessment and Plan: * Reports shortness of breath * Chest xray shows interstitial edema * Will get echo to determine systolic or diastolic dysfunction * BNP elevated at 1180 * Daily weights * Trend urine output * Not on home diuretics * Give one dose of lasix IV see if it helps, repeat one more time (5) Chest pain: Code(s): R07.9 - Chest pain, unspecified Status: Acute Assessment and Plan: * Reports of sternal chest pain * Trops negative x 3 * Chest xray shows pulmonary edema * Lasix given * Add aspirin DS: Summary Hospital Course Hospital Course: Patient is a 55-year-old female with a past medical history small-cell carcinoma, COPD and esophageal stricture who presented to the ED with abnormally increased shortness of breath. Chest x-ray did show superimposed pneumonia and interstitial edema. Patient was placed on IV Levaquin and IV Lasix. Patient did meet sepsis criteria with leukocytosis, tachycardia, tachypnea,. UA noted to be cloudy and grew E coli. Patient did have a noted elevated BNP and echo did show EF of 60 65% with grade 1 diastolic dysfunction. She also did have an episode of chest pain troponins were negative. Patient has been doing well and labs are stable along with her vital signs. Patient is stable for discharge at this time. Patient denies any complaints including chest pain, nausea, vomiting, diarrhea, constipation, weakness or fatigue. She did state that she had an episode of shortness of breath, but is what she is used to. Smoking cessation was given for more than 10 minutes. Time spent discussing smoking cessation with patient: more than 10 minutes Status at Discharge Functional status at discharge: independent ambulation Overall status at discharge: patient is progressing back to baseline Time Spent with Patient Time attestation: Total time spent providing and/or coordinating discharge services: 48 minutes Time spent: Greater than 30 minutes Specific discharge activities: Diagnostic testing, chart review, developing a treatment plan, education, care coordination documenta
--- NOTE | 2021-04-22 11:15 | PM.DS ---
DS: Admitting Diagnosis Discharge Date 04/22/21 1115 Admitting Diagnosis Pneumonia/CHF DS: Discharge Diagnosis Discharge Diagnosis (1) Community acquired pneumonia: Code(s): J18.9 - Pneumonia, unspecified organism Status: Acute Assessment and Plan: Complaints of shortness of breath with very light activity Chest x-ray shows possible superimposed pneumonia and interstitial edema white blood cell count 18.2 upon admission trending down an is 6.8 No notable hypoxia, and no oxygen needs IV levaquin Trend SPO2 (2) Sepsis: Code(s): A41.9 - Sepsis, unspecified organism Status: Acute Assessment and Plan: Patient did meet sepsis criteria with leukocytosis, tachycardia, tachypnea, and source of infection No noted hypotension Qsofa is 0 No aggressive hydration needed IV antibiotics on board WBC tending down (3) Urinary tract infection: Code(s): N39.0 - Urinary tract infection, site not specified Status: Acute Assessment and Plan: UA Cloudy valerio, Nitrate positives, 2+ leukocytes esterase, WBC >75, Heavy mucous Levaquin on board, due to patient allergy to ceftriaxone Urine culture Ecoli Antibiotics appropriate at this time (4) CHF (congestive heart failure): Code(s): I50.9 - Heart failure, unspecified Status: Acute Assessment and Plan: Reports shortness of breath Chest xray shows interstitial edema Will get echo to determine systolic or diastolic dysfunction BNP elevated at 1180 Daily weights Trend urine output Not on home diuretics Give one dose of lasix IV see if it helps, repeat one more time (5) Chest pain: Code(s): R07.9 - Chest pain, unspecified Status: Acute Assessment and Plan: Reports of sternal chest pain Trops negative x 3 Chest xray shows pulmonary edema Lasix given Add aspirin DS: Summary Hospital Course Hospital Course: Patient is a 55-year-old female with a past medical history small-cell carcinoma, COPD and esophageal stricture who presented to the ED with abnormally increased shortness of breath. Chest x-ray did show superimposed pneumonia and interstitial edema. Patient was placed on IV Levaquin and IV Lasix. Patient did meet sepsis criteria with leukocytosis, tachycardia, tachypnea,. UA noted to be cloudy and grew E coli. Patient did have a noted elevated BNP and echo did show EF of 60 65% with grade 1 diastolic dysfunction. She also did have an episode of chest pain troponins were negative. Patient has been doing well and labs are stable along with her vital signs. Patient is stable for discharge at this time. Patient denies any complaints including chest pain, nausea, vomiting, diarrhea, constipation, weakness or fatigue. She did state that she had an episode of shortness of breath, but is what she is used to. Smoking cessation was given for more than 10 minutes. Time spent discussing smoking cessation with patient: more than 10 minutes Status at Discharge Functional status at discharge: independent ambulation Overall status at discharge: patient is progressing back to baseline Time Spent with Patient Time attestation: Total time spent providing and/or coordinating discharge services: 48 minutes Time spent: Greater than 30 minutes Specific discharge activities: Diagnostic testing, chart review, developing a treatment plan, education, care coordination documentation, physical exam, result review Exam Const: General: cooperative, healthy appearing, no acute distress, well developed, alert and awake Nutritional Appearance: well nourished Orientation/consciousness: oriented to person, oriented to place, oriented to time and patient oriented x3 Limitations: no limitations HENMT: Head: normal to inspection Ears: hearing grossly normal bilaterally General nose exam: Normal external nose present Mouth: Yes Normal oral and pal
== END 2021-04-22 13:35 | disposition home or self-care (01) | DRG 871 ==
LOC: ANHED 13:53 → ANH3MEDSUR 14:37
PROVIDERS: Admitting Provider Internal Medicine; Emergency Provider Emergency Medicine; Visit Provider Nurse Practitioner
DX: A41.9 Sepsis, unspecified organism (principal); J18.9 Pneumonia, unspecified organism; N39.0 Urinary tract infection, site not specified; J44.0 Chronic obstructive pulmonary disease with (acute) lower respiratory infection; I50.32 Chronic diastolic (congestive) heart failure; F41.9 Anxiety disorder, unspecified; F31.9 Bipolar disorder, unspecified; Z86.73 Personal history of transient ischemic attack (TIA), and cerebral infarction without residual deficits; Z90.2 Acquired absence of lung [part of]; R90.82 White matter disease, unspecified; Z85.118 Personal history of other malignant neoplasm of bronchus and lung; Z92.3 Personal history of irradiation; Z92.21 Personal history of antineoplastic chemotherapy; Z87.891 Personal history of nicotine dependence; Z79.899 Other long term (current) drug therapy; R00.0 Tachycardia, unspecified; Z20.822 Contact with and (suspected) exposure to COVID-19; R07.9 Chest pain, unspecified; B96.20 Unspecified Escherichia coli [E. coli] as the cause of diseases classified elsewhere; Z79.51 Long term (current) use of inhaled steroids; Z79.891 Long term (current) use of opiate analgesic
CPT/HCPCS: 36415; 71045; 80048; 80053; 81001; 83605; 83735; 83880; 84484; 85025; 85055; 85610; 85730; 87040; 87070; 87077; 87086; 87186; 87205; 87502; 93005; 93306; 94640; 96361; 96365; 96372; 96374; 96375; 97161; 97165; 99285; A9270; C9803; G0378; J0456; J0696; J1200; J1650; J1940; J1956; J2405; J7030; U0003; U0005

== ENCOUNTER 2021-06-16 16:07 | Inpatient (IN) | payer OTHER, SELFPAY ==
[2021-06-16] VITALS (21 sets, daily range): BP systolic 105–135; BP diastolic 69–90; PULSE 90–119; RESP 16–30; TEMP 36.6; O2SAT 88–100; BMI 18.3
--- NOTE | ~2021-06-16 | XR_ITS ---
EXAMINATION: XR chest 1V portable DATE: 06/20/2021 12:10 INDICATION: Acute anterior chest pain. TECHNIQUE: A single frontal view of the chest was obtained on 2 radiographs. COMPARISON: Chest single view 06/16/2021, chest CT 06/16/2021 FINDINGS: The lungs are hyperexpanded with lucencies, consistent with emphysema. There are changes of left upper lobe wedge resection. There are chronic airspace opacities with volume loss in right munira hilar region, consistent with radiation fibrosis. Calcified right hilar and mediastinal lymph nodes a re consistent with old granulomatous disease. No pleural effusion or pneumothorax. The heart size is normal. IMPRESSION: 1. Radiation fibrosis in right perihilar region. 2. Emphysema. Reviewed, dictated and finalized at location B.
--- NOTE | ~2021-06-16 | CT_ITS ---
EXAMINATION: CTA chest PE protocol DATE: 06/16/2021 18:07 INDICATION: Dyspnea. TECHNIQUE: Computed tomography angiography (CTA) of the chest was performed with 100 mL Omnipaque-350 intravenous contrast timed to evaluate the pulmonary arteries. Coronal maximum intensity projection 3D-reconstructions were created by the technologist. Automated exposure control and iterative reconst ruction technique were employed. The dose-length product was 147.57 mGy-cm. COMPARISON: Chest CT 08/16/2018, 06/28/17 FINDINGS: There is severe emphysema. There are airspace opacities in paramediastinal right lung with volume loss and architectural distortion, consistent with radiation fibrosis. There is collapse of ri ght middle lobe. Calcified right lung nodules and calcified right hilar and mediastinal lymph nodes a re consistent with old granulomatous disease. There are groundglass opacities in anterior segment rig ht upper lobe and right lower lobe, consistent with pneumonia. There is an 8 mm nodule in right lower lobe that measured 6 mm on 06/28/17. The pleural effusion. The heart size is normal. There are grissom ry artery calcifications. No pericardial effusion. There is no pulmonary embolus. Calcifications in t he spleen are consistent with old granulomatous disease. There is mild thoracic spondylosis. IMPRESSION: 1. No pulmonary embolus. 2. Mild pneumonia involving anterior segment right upper lobe and right lower lobe. 3. 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 4. Worsened complete collapse of right middle lobe. 5. Severe emphysema. 6. 8 mm pulmonary nodule, worsened from 6 mm on 06/28/2017. This finding may be benign, but low-grade neoplasm cannot be excluded. Reviewed, dictated and finalized at location A. IMPRESSION: 1. No pulmonary embolus. 2. Mild pneumonia involving anterior segment right upper lobe and right lower l obe. 3. 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 4. Worsened complete collapse of right middle lobe. 5. Severe emphysema. 6. 8 mm pulmonary nodule, worsened from 6 mm on 06/28/2017. This finding may be benign, but low-grade neoplasm cannot be excluded.
--- NOTE | ~2021-06-16 | XR_ITS ---
XR chest 1V portable DATE: 06/16/2021 17:23 INDICATION: Dyspnea. COPD, congestive heart failure. TECHNIQUE: Portable upright AP chest on 06/16/2021 at 1719 hours COMPARISON: 04/20/2021 portable AP chest at 1029 hours FINDINGS: Bilateral hyperinflation and evidence of bilateral bullous emphysema. Prominent central lef t pulmonary artery in particular suggests pulmonary hypertension Mild patchy infiltrate or atelectasis in the right mid and lower lung zone and left lower lung calderon are suggested. Pneumonia is not excluded. Small right pleural effusion is suggested. Heart size is within normal limits. Surgical clips overlie the left hilar area and left upper lung. No pulmonary vascular congestion or pneumothorax is evident. Osteopenia. IMPRESSION: Bullous emphysema, suggestion of pulmonary hypertension Patchy infiltrate is suggested in the right mid and both lower lung zones. Pneumonia is not excluded. Reviewed, dictated and finalized at location B. IMPRESSION: Bullous emphysema, suggestion of pulmonary hypertension Patchy infiltrate is suggested in the right mid and both lower lung zones. Pneu monia is not excluded.
--- NOTE | 2021-06-16 16:13 | ECG_ITS ---
Measurements Intervals [place] Rate: 116 P: 80 ID: 137 QRS: 53 QRSD: 81 T: 76 QT: 341 QTc: 475 Interpretive Statements SINUS TACHYCARDIA POSSIBLE RIGHT ATRIAL ENLARGEMENT BORDERLINE ST ABNORMALITY- ANT/INF LEADS BASELINE ARTIFACT- I, II, III, AVR, AVL, AVF ABNORMAL ECG Electronically Signed On 06-16-2021 20:25:53 CDT by Efraín Riley D.O.
--- NOTE | 2021-06-16 16:21 | ED.SOB ---
HPI - SOB/Dyspnea General Chief Complaint: Shortness of Breath/Dyspnea Stated Complaint: SOB Time Seen by Provider: 06/16/21 16:21 Source: patient Mode of arrival: ambulatory Limitations: no limitations History of Present Illness HPI Narrative: The patient is a 55-year-old female with past medical history of small-cell carcinoma, COPD and recent admission to the hospital in April 2021 for pneumonia, urinary tract infection, who presented to the emergency department today for evaluation of shortness of breath. Patient states she has felt unwell over the past 72 hours. Patient reports increasing shortness of breath, and productive cough. She denies hemoptysis or chest pain. Patient reports subjective fever, chills. She denies lower extremity swelling or pain. Patient denies recent sick contacts. She states she has been compliant with her medications. Patient reports hospitalization in April of this year. She denies history of blood clot or coagulopathy. She is on any anticoagulation. Patient is on any home oxygen. 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 Per chart review, patient was admitted in April 2021 ultimately diagnosed with sepsis from a urinary tract infection and had also been treated for pneumonia. Patient was discharged home in did not have an oxygen requirement at that time. Related Data Home Medications Medication Instructions Recorded Confirmed albuterol sulfate 2 inh INHALATION DIRECTED 06/30/19 04/18/21 budesonide-formoterol [Symbicort] 1 inh INHALATION DIRECTED 06/30/19 04/18/21 escitalopram oxalate 10 mg PO DAILY 06/30/19 04/18/21 montelukast 10 mg PO DAILY 06/30/19 04/18/21 albuterol sulfate 1.25 mg INHALATION DIRECTED 05/10/20 04/18/21 famotidine 20 mg PO DAILY 05/10/20 04/18/21 ibuprofen 800 mg PO TID PRN 04/18/21 04/18/21 ondansetron HCl 4 mg PO Q6H PRN 04/18/21 04/18/21 Allergies Allergy/AdvReac Type Severity Reaction Status Date / Time ceftriaxone Allergy Intermediate Hives Verified 04/18/21 22:43 adhesive tape AdvReac Rash Verified 04/18/21 11:55 morphine AdvReac Vomiting Verified 04/18/21 11:55 Review of Systems Review of Systems: CONSTITUTIONAL: Reports subjective fever and chills EYES: Denies visual changes, redness, or discharge. ENT: Denies rhinorrhea, congestion, sore throat, or otalgia. CARDIOVASCULAR: Denies chest pain, palpitations, or edema. RESPIRATORY: Reports cough and shortness of breath GASTROINTESTINAL: Denies abdominal pain, nausea, vomiting, or diarrhea. GENITOURINARY: Denies dysuria or hematuria. SKIN: Denies rash or itching. MUSCULOSKELETAL: Denies back pain, joint pain, or myalgia. NEUROLOGIC: Denies headache, numbness, reports feeling diffusely weak PMFSH Past Medical History Medical History Acquired absence of lung [part of] Anxiety disorder Asthma Bipolar disorder Compression of trachea due to food in esophagus History of COPD History of depression History of pleural effusion Malignant neoplasm of unspecified part of unspecified bronchus or lung Personal history of antineoplastic chemotherapy Personal history of irradiation Pleurodynia Tachycardia TIA (transient ischemic attack) White matter disease Surgical History Surgical History Status post lobectomy of lung Left lung Social History Social History Smoking packs per day: 0.5 Smoking cigarettes per day: 10.0 Years smoked: 35 Smoking pack-years: 17.50 Smoking status: Current every day smoker Tobacco type: cigarettes Second hand tobacco smoke exposure: Yes Smoking end date: 04/18/21 Alcohol intake: never Substance use: never Spiritual care concerns: Yes Exam Narrative: GENERAL: Awake, alert, fatigued, ill-appearing HEAD: Normocephalic, atraumatic. EYES: PERRLA and
[2021-06-16 16:49] LABS: Basophils Absolute Auto 0.1 K/mm3 (0.0-0.1); Basophils Percent Auto 0.3 % (0.2-1.2); Eosinophils Percent Auto 0.2 % (0-4.4); Hematocrit 45.1 % (37.0-47.0); Hemoglobin 14.5 g/dL (12.0-15.0); Immature Granulocyte Percent A 0.5 % (0-0.5); Lymphocytes Absolute Auto 2.73 K/mm3 (0.9-3.2); Lymphocytes Percent Auto 12.5 % (18.3-44.2); Mean Corpuscular HGB Conc 32.2 g/dl (32-36); Mean Corpuscular Hemoglobin 31.2 pg (26-34); Mean Platelet Volume 10.1 fl (7.4-10.4); Monocytes Absolute Auto 1.1 K/mm3 (0.1-0.6); Monocytes Percent Auto 5.2 % (2.6-8.5); Neutrophils Absolute Auto 17.8 K/mm3 (1.3-6.7); Neutrophils Percent Auto 81.3 % (45.5-73.1); Platelet Count Result 232 k/mm3 (150-375); Red Blood Count 4.65 M/mm3 (4.2-5.4); Red Cell Distribution Width 13.9 % (11.5-14.5); White Blood Count 21.8 K/mm3 (4.5-10.0)
[2021-06-16 17:04] LABS: INR 1.2; Prothrombin Time 14.5 Seconds (11.1-14.7)
[2021-06-16 17:05] LABS: Partial Thromboplastin Time 30.6 SECONDS (22.3-36.8)
[2021-06-16 17:23] LABS: Alveolar/Arterial O2 Gradient 77.4 mmHg; Base Excess ABG -0.9 mEq/l (+/-2.0); Carboxyhemoglobin 1.4 % THb (0-2.0); Fractional Inspired Oxygen 28 %; HCO3 ABG 22.9 mEq/l (22.0-26.0); Methemoglobin ABG 0.3 %THb (0-1.5); Oxygen Content ABG 18.7 %vol (16.0-22.0); Oxygen Saturation ABG 96.2 % (95.0-100.0); Oxyhemoglobin 93.6 % THb (90.0-100.0); PCO2 ABG 35.4 mmHg (35.0-45.0); PO2 ABG 80.5 mmHg (80.0-100.0); PO2 FiO2 Ratio Arterial Blood 2.88 %; Reduced Hemoglobin 4.7 %THb (0-5.0); Total Hemoglobin 14.2 g/dL (12.0-18.0); pH ABG 7.428 (7.350-7.450)
[2021-06-16 17:24] LABS: Device NASAL CANNULA; Modified Allen's Test Pass; Site Drawn RIGHT RADIAL
[2021-06-16 17:37] LABS: SARS-CoV-2 RNA PCR Negative
[2021-06-16 17:43] LABS: Alanine Aminotransferase 12 U/L (6-35); Albumin Level 4.2 g/dL (3.5-5.1); Alkaline Phosphatase 102 U/L (38-126); Anion Gap 10 mmol/L (8-16); Aspartate Amino Transferase 30 U/L (14-36); Bilirubin,Total 0.8 mg/dL (0.2-1.3); Blood Urea Nitrogen 16 mg/dL (7-17); Calcium 8.7 mg/dL (8.4-10.2); Carbon Dioxide 24 mmol/L (22-30); Chloride 100 mmol/L (98-107); Estimated CRCL calculation 67 ml/min; Estimated Glomerular Filt Rate > 60; Glucose 110 mg/dL (65-110); NT Pro B Type Natriuretic Pept 694 pg/mL (5-100); Potassium 3.7 mmol/L (3.4-5.0); Sodium 134 mmol/L (137-145); Troponin I < 0.012 ng/mL (0.000-0.034)
[2021-06-16 17:57] LABS: Lactic Acid Reflex 1.5 mmol/L (0.7-2.0)
[2021-06-16] MEDS: methylPREDNISolone SOD SUCC 125 MG VIAL IV PUSH (20:23)
[2021-06-16] MEDS: IPRATROPIUM BR 0.02% INH SOLN 0.5 MG/2.5 ML VIAL INHALATION (20:43)
[2021-06-16] MEDS: ALBUTEROL SULFATE NEB 2.5 MG/3 ML INH 5 MG INHALATION (20:43)
--- NOTE | 2021-06-16 23:38 | ADMGEN ---
This patient, Alee Robison, was admitted to [facility] Room 328-01. Patient/family oriented to hospital policies and general routines including ID bracelet, bed and alarms, visiting hours, pain management, procedures, bathroom and other care routines, personal items, smoking policy, room service/diet, and visiting hours. Information on how to activate the Rapid Response Team has been discussed. Patient/Family are encouraged to report perceived risks to care and to ask questions if they do not understand what they are told or what they should do.
[2021-06-17] VITALS (19 sets, daily range): BP systolic 97–126; BP diastolic 56–77; PULSE 87–108; RESP 16–20; TEMP 36–36.8; O2SAT 91–99; BMI 18.3
[2021-06-17] MEDS: IPRATROPIUM BR 0.02% INH SOLN 0.5 MG/2.5 ML VIAL INHALATION ×2 (01:27→19:54)
[2021-06-17] MEDS: ALBUTEROL SULFATE NEB 2.5 MG/3 ML INH 5 MG INHALATION ×2 (01:27→19:54)
--- NOTE | 2021-06-17 03:59 | PM.IMHP ---
H&P: HPI History of Present Illness Date/Time: Greater than 30 minutes spent reviewing chart, evaluating, treating, and counseling patient. Anticipate patient will be here greater than 48 hours, will admit as inpatient. 06/17/21 03:59 55 yo F PMHx of anxiety/bipolar disorder, HFpEF (04/2021 TTE LVEF 60-65% with grade I DD), COPD, h/o lung ca s/p BROOKE lobectomy and later had chemo/RT. Presents with couple weeks of body aches. Patient reports she has progressively become SOB and is now coughing up thick green/yellow sputum. Patient states she felt like she may have had a fever yesterday morning, but did not check her temp. Patient also complaining of sharp chest pain in on both sides of chest without radiation, states this randomly occurs from time to time without provocation. Denies palpitations, n/v/d/c, dysuria, hematuria, blood in stool. In ED, patient afebrile, tachycardic, tachypneic. O2 sat in low 90s on RA. Normotensive. Labs showing WBC 21.8, lactic normal. EKG showing sinus tachycardia, troponin negative. CTPA negative for PE, however showing RUL and RLL consolidation. Blood cxs and sputum cx obtained, patient given dose of vanc and levaquin. Chief Complaint: SOB, body aches, productive cough Review of Systems Review of Systems: 10 point ROS completed, negative unless otherwise specified per HPI PMFSH Past Medical History Medical History (Updated 06/17/21 @ 04:20 by Shady Whitehead DO) Acquired absence of lung [part of] Anxiety disorder Asthma Bipolar disorder Compression of trachea due to food in esophagus History of COPD History of depression History of pleural effusion Malignant neoplasm of unspecified part of unspecified bronchus or lung Personal history of antineoplastic chemotherapy Personal history of irradiation Pleurodynia Tachycardia TIA (transient ischemic attack) White matter disease Surgical History Surgical History Status post lobectomy of lung Left lung Social History Social History Smoking packs per day: 0.5 Smoking cigarettes per day: 10.0 Years smoked: 35 Smoking pack-years: 17.50 Smoking status: Current every day smoker Second hand tobacco smoke exposure: Yes Alcohol intake: never Substance use: never Spiritual care concerns: No Meds Home Medications and Allergies Home Medications Medication Instructions Recorded Confirmed Type albuterol sulfate 2 inh INHALATION Q4H PRN 06/30/19 06/17/21 History aspirin [Children's Aspirin] 81 mg PO DAILY@0800 #30 tablet 04/22/21 06/17/21 Rx levofloxacin 750 mg PO DAILY #7 tablet 04/22/21 06/17/21 Rx Allergies Allergy/AdvReac Type Severity Reaction Status Date / Time adhesive tape AdvReac Rash Verified 06/17/21 00:47 morphine AdvReac Vomiting Verified 06/17/21 00:47 Vital Signs Vital Signs - 24 hr 06/16/21 16:13 06/16/21 16:14 06/16/21 16:15 Temperature 97.8 F Pulse Rate 118 H 117 H Respiratory Rate 28 H 27 H Blood Pressure 113/83 Pulse Oximetry 90 91 90 06/16/21 16:16 06/16/21 16:25 06/16/21 19:15 Temperature Pulse Rate 117 H 98 Respiratory Rate 25 H 19 Blood Pressure 115/79 Pulse Oximetry 93 92 96 06/16/21 19:16 06/16/21 19:30 06/16/21 19:31 Temperature Pulse Rate 97 100 97 Respiratory Rate 16 26 H 23 H Blood Pressure 105/77 114/74 Pulse Oximetry 97 98 97 06/16/21 20:06 06/16/21 20:15 06/16/21 20:16 Temperature Pulse Rate 95 96 94 Respiratory Rate 20 25 H 30 H Blood Pressure 135/90 Pulse Oximetry 100 100 99 06/16/21 20:30 06/16/21 20:31 06/16/21 20:45 Temperature Pulse Rate 90 90 97 Respiratory Rate 29 H 28 H 22 H Blood Pressure 124/78 Pulse Oximetry 99 100 100 06/16/21 20:46 06/16/21 20:53 06/16/21 21:00 Temperature Pulse Rate 95 94 92 Respiratory Rate 23 H 19 30 H Blood Pressure 134/85 Pulse Oximetry 96 97 06/16/21 21:01 05
--- NOTE | 2021-06-17 07:59 | PM.IMPN ---
Progress Note: A&P Assessment and Plan (1) Pneumonia: Code(s): J18.9 - Pneumonia, unspecified organism Status: Acute Assessment and Plan: Patient is oxygenating well on 1 L supplemental oxygen today. CTA chest showed no PE, mild pneumonia involving anterior segment right upper lobe and right lower lobe, worsened complete collapse of right middle lobe, severe emphysema. Lung sounds are abnormal, but this patient does have a significant history including lobectomy for treatment of lung cancer, and COPD. April 2021 culture showed E coli. Sputum Cx pending, check urine legionella continued Azithromycin and Rocephin (2) Sepsis: Code(s): A41.9 - Sepsis, unspecified organism Status: Acute Assessment and Plan: White blood cell count has completely normalized today. Patient is afebrile Continue abx as per above. Blood cultures pending (3) Malignant neoplasm of unspecified part of unspecified bronchus or lung: Code(s): C34.90 - Malignant neoplasm of unspecified part of unspecified bronchus or lung Status: Inactive Assessment and Plan: CTPA notes 8 mm pulmonary nodule, increased from 6 mm 06/2017. Follow up with pulmonology as outpatient (4) COPD (chronic obstructive pulmonary disease): Code(s): J44.9 - Chronic obstructive pulmonary disease, unspecified Status: Acute Assessment and Plan: Will not treat as COPD exacerbation at the moment. Continue to monitor for wheezing, add on steroids if high concern for COPDE. Continue albuterol and ipratroprium nebs. Continue singulair (5) Anxiety disorder: Code(s): F41.9 - Anxiety disorder, unspecified Status: Inactive Assessment and Plan: Continue lexapro Additional Plan Patient was hospitalized in April with UTI and pneumonia. Repeat UA with reflex to culture today Subjective Date/time seen: 06/17/21 07:59 Interval history: 55 yo F PMHx of anxiety/bipolar disorder, HFpEF (04/2021 TTE LVEF 60-65% with grade I DD), COPD, h/o lung ca s/p BROOKE lobectomy and later had chemo/RT. Presents with couple weeks of body aches. Patient reports feeling very hot and flushed today in her room. She is still feeling unwell. She reports her nurse told her she does not have pneumonia and was confused. I discussed her treatment plan with her. She denies chest pain, shortness of breath, nausea, vomiting. She is having normal bowel and bladder function. Review of Systems Review of Systems: All systems reviewed & are unremarkable except as noted in HPI and below Exam Narrative: GENERAL APPEARANCE: Cachectic, chronically ill-appearing female. Alert and oriented x 3, in no apparent distress. HEENT: PERRL, EOMI. Sclerae anicteric. Moist mucous membranes. NECK: Supple. No JVD or obvious carotid bruits. RESPIRATORY: Respirations are nonlabored. Bronchial breath sounds, inspiratory and expiratory, throughout. CARDIOVASCULAR: Regular rate and rhythm with normal S1-S2. No murmurs, gallops, or rubs. GASTROINTESTINAL: Soft, flat, and benign. No mass, tenderness, guarding, or rebound. No organomegaly or hernia. Bowel sounds are present. SKIN: Warm, dry, well perfused. Good turgor. No lesions, nodules, or rashes noted. Warm and dry. No rash or lesions on limited exam. EXTREMITIES: No cyanosis, clubbing, or edema. Radial and pedal pulses intact. NEUROLOGICAL: Alert. Cranial nerves 2-12 are grossly intact. No gross focal deficits to casual conversation. PSYCHIATRIC: Pleasant and cooperative with normal mood and affect. Objective Data Vital Signs Vital Signs: Vital Signs - 24 hr 06/16/21 16:13 06/16/21 16:14 06/16/21 16:15 Temperature 97.8 F Pulse Rate 118 H 117 H Respiratory Rate 28 H 27 H Blood Pressure 113/83 Pulse Oximetry 90 91 90 06/16/21 16:16 06/16/21 16:25 06/16/21 19:15 Temperature Pulse Rate 117 H 98 Respirato
[2021-06-17 08:31] LABS: Basophils Percent Auto 0.1 % (0.2-1.2); Hematocrit 42.8 % (37.0-47.0); Immature Granulocyte Absolute 0.04 K/mm3 (0.00-0.031); Immature Granulocyte Percent A 0.5 % (0-0.5); Lymphocytes Absolute Auto 0.67 K/mm3 (0.9-3.2); Lymphocytes Percent Auto 7.6 % (18.3-44.2); Mean Corpuscular HGB Conc 32.7 g/dl (32-36); Mean Corpuscular Hemoglobin 31.1 pg (26-34); Mean Corpuscular Volume 95.1 fl (80-100); Mean Platelet Volume 10.2 fl (7.4-10.4); Monocytes Absolute Auto 0.1 K/mm3 (0.1-0.6); Monocytes Percent Auto 1.4 % (2.6-8.5); Neutrophils Percent Auto 90.4 % (45.5-73.1); Platelet Count Result 228 k/mm3 (150-375); Red Cell Distribution Width 13.6 % (11.5-14.5); White Blood Count 8.8 K/mm3 (4.5-10.0)
[2021-06-17] MEDS: ENOXAPARIN 40 MG/0.4 ML SYRINGE SUB-Q (08:54)
[2021-06-17 09:05] LABS: Alanine Aminotransferase 9 U/L (6-35); Albumin Level 3.5 g/dL (3.5-5.1); Alkaline Phosphatase 89 U/L (38-126); Anion Gap 7 mmol/L (8-16); Aspartate Amino Transferase 18 U/L (14-36); Bilirubin,Total 0.4 mg/dL (0.2-1.3); Blood Urea Nitrogen 19 mg/dL (7-17); Calcium 8.9 mg/dL (8.4-10.2); Carbon Dioxide 28 mmol/L (22-30); Chloride 100 mmol/L (98-107); Estimated CRCL calculation 67 ml/min; Estimated Glomerular Filt Rate > 60; Glucose 154 mg/dL (65-110); Sodium 135 mmol/L (137-145)
[2021-06-17 09:08] LABS: Magnesium 1.7 mg/dL (1.6-2.3)
[2021-06-17] MEDS: ESCITALOPRAM OXALATE 10 MG TABLET PO (09:42)
[2021-06-17] MEDS: PANTOPRAZOLE 40 MG TABLET PO (09:43)
[2021-06-17] MEDS: ASPIRIN 81 MG CHEWABLE TABLET PO (09:43)
[2021-06-17 15:10] LABS: Appearance Urine Clear (Clear); Bilirubin Urine Negative (Negative); Color Urine Yellow (Yellow); Glucose Urine UA 2+ mg/dL (Negative); Ketones Urine Negative (Negative); Leukocyte Esterase Ur Trace LEU/UL (Negative); Nitrate Urine Negative (Negative); Protein Urine Negative (Negative); Urobilinogen Urine 0.2 mg/dL (<2.0)
[2021-06-17 15:15] LABS: Squamous Epithelial Cell Urine Rare /hpf (Few)
[2021-06-17 15:17] LABS: Add Urine Microscopic? YES; Blood Urine Trace-Intact (Negative)
[2021-06-17] MEDS: GABAPENTIN 300 MG CAPSULE PO (18:09)
[2021-06-17] MEDS: MONTELUKAST SODIUM 10 MG TABLET PO (20:15)
[2021-06-18] VITALS (16 sets, daily range): BP systolic 92–100; BP diastolic 53–56; PULSE 85–103; RESP 16–20; TEMP 36.4–36.6; O2SAT 92–95
[2021-06-18] MEDS: ALBUTEROL SULFATE NEB 2.5 MG/3 ML INH 5 MG INHALATION ×3 (01:35→13:21)
[2021-06-18] MEDS: IPRATROPIUM BR 0.02% INH SOLN 0.5 MG/2.5 ML VIAL INHALATION ×3 (01:36→13:21)
[2021-06-18 07:49] LABS: Basophils Percent Auto 0.2 % (0.2-1.2); Eosinophils Absolute Auto 0.1 K/mm3 (0-0.3); Eosinophils Percent Auto 0.4 % (0-4.4); Hemoglobin 12.8 g/dL (12.0-15.0); Immature Granulocyte Absolute 0.08 K/mm3 (0.00-0.031); Immature Granulocyte Percent A 0.5 % (0-0.5); Lymphocytes Absolute Auto 2.97 K/mm3 (0.9-3.2); Lymphocytes Percent Auto 18.1 % (18.3-44.2); Mean Corpuscular HGB Conc 32.8 g/dl (32-36); Mean Corpuscular Hemoglobin 31.6 pg (26-34); Mean Corpuscular Volume 96.3 fl (80-100); Mean Platelet Volume 10.6 fl (7.4-10.4); Monocytes Absolute Auto 0.6 K/mm3 (0.1-0.6); Monocytes Percent Auto 3.9 % (2.6-8.5); Neutrophils Absolute Auto 12.7 K/mm3 (1.3-6.7); Neutrophils Percent Auto 76.9 % (45.5-73.1); Platelet Count Result 244 k/mm3 (150-375); Red Blood Count 4.05 M/mm3 (4.2-5.4); Red Cell Distribution Width 13.9 % (11.5-14.5); White Blood Count 16.5 K/mm3 (4.5-10.0)
[2021-06-18 08:13] LABS: Alanine Aminotransferase 10 U/L (6-35); Albumin Level 3.3 g/dL (3.5-5.1); Alkaline Phosphatase 69 U/L (38-126); Anion Gap 10 mmol/L (8-16); Aspartate Amino Transferase 18 U/L (14-36); Bilirubin,Total 0.2 mg/dL (0.2-1.3); Blood Urea Nitrogen 24 mg/dL (7-17); Calcium 8.2 mg/dL (8.4-10.2); Carbon Dioxide 26 mmol/L (22-30); Chloride 102 mmol/L (98-107); Estimated CRCL calculation 59 ml/min; Estimated Glomerular Filt Rate > 60; Glucose 131 mg/dL (65-110); Potassium 2.6 mmol/L (3.4-5.0); Sodium 138 mmol/L (137-145)
--- NOTE | 2021-06-18 08:33 | PM.IMPN ---
Progress Note: A&P Assessment and Plan (1) Pneumonia: Code(s): J18.9 - Pneumonia, unspecified organism Status: Acute Assessment and Plan: Patient is oxygenating well on room air today. CTA chest showed no PE, mild pneumonia involving anterior segment right upper lobe and right lower lobe, worsened complete collapse of right middle lobe, severe emphysema. Lung sounds are abnormal, but this patient does have a significant history including lobectomy for treatment of lung cancer, and COPD. April 2021 culture showed E coli. COVID influenza a/B negative is Sputum Cx pending, legionella pending continued Azithromycin and Rocephin (2) Sepsis: Code(s): A41.9 - Sepsis, unspecified organism Status: Acute Assessment and Plan: WBC 16.5, up from 8.8 yesterday possible the 8.8 draw was in error, otherwise, patient is clinically improving from her admission WBC of > 21. Patient is afebrile. Blood culture showed no growth today. Blood pressure a little soft today, BUN slightly elevated. Blood culture show no growth to date. Sepsis lactate 2.0. Procalcitonin 0.1, low risk for sepsis. Continue abx as per above. Start patient on gentle IV fluid resuscitation. (3) Malignant neoplasm of unspecified part of unspecified bronchus or lung: Code(s): C34.90 - Malignant neoplasm of unspecified part of unspecified bronchus or lung Status: Inactive Assessment and Plan: CTPA notes 8 mm pulmonary nodule, increased from 6 mm 06/2017. Follow up with pulmonology as outpatient (4) COPD (chronic obstructive pulmonary disease): Code(s): J44.9 - Chronic obstructive pulmonary disease, unspecified Status: Acute Assessment and Plan: Will not treat as COPD exacerbation at the moment. Continue to monitor for wheezing, add on steroids if high concern for COPDE. Continue albuterol and ipratroprium nebs. Continue singulair (5) Anxiety disorder: Code(s): F41.9 - Anxiety disorder, unspecified Status: Inactive Assessment and Plan: Continue lexapro (6) Electrolyte abnormality: Code(s): E87.8 - Other disorders of electrolyte and fluid balance, not elsewhere classified Status: Acute Assessment and Plan: Ca 8.2 Oscal BIDWM repeat AM labs K 3.4 (2.6) (4.0) 40 mEq p.o. given Repeat AM labs Mg 1.6 2g mag sulfate IVPB Recheck in AM. Additional Plan Patient was hospitalized in April with UTI and pneumonia. UA unremarkable. Subjective Date/time seen: 06/18/21 08:33 Interval history: 55 yo F PMHx of anxiety/bipolar disorder, HFpEF (04/2021 TTE LVEF 60-65% with grade I DD), COPD, h/o lung ca s/p BROOKE lobectomy and later had chemo/RT. Presents with couple weeks of body aches. Patient reports feeling very hot and flushed today in her room. She is still feeling unwell and nauseaous after receiving oral potassium this morning. She denies shortness of breath, chest pain, dizziness. Review of Systems Review of Systems: All systems reviewed & are unremarkable except as noted in HPI and below Exam Narrative: GENERAL APPEARANCE: Cachectic, chronically ill-appearing female. Alert and oriented x 3, in some distress due to nausea. HEENT: PERRL, EOMI. Sclerae anicteric. Moist mucous membranes. NECK: Supple. No JVD or obvious carotid bruits. RESPIRATORY: Respirations are mildly labored. Bronchial breath sounds, rhonchi, inspiratory and expiratory, throughout. CARDIOVASCULAR: Regular rate and rhythm with normal S1-S2. No murmurs, gallops, or rubs. GASTROINTESTINAL: Soft, flat, and benign. No mass, tenderness, guarding, or rebound. No organomegaly or hernia. Bowel sounds are present. SKIN: Warm, dry, well perfused. Good turgor. No lesions, nodules, or rashes noted. Warm and dry. No rash or lesions on limited exam. EXTREMITIES: No cyanosis, clubbing, or edema. Radial and pedal pulses inta
[2021-06-18] MEDS: POTASSIUM CHLORIDE 20 MEQ TABLET 40 MEQ PO (09:15)
[2021-06-18] MEDS: ASPIRIN 81 MG CHEWABLE TABLET PO (09:16)
[2021-06-18] MEDS: ESCITALOPRAM OXALATE 10 MG TABLET PO (09:16)
[2021-06-18] MEDS: ENOXAPARIN 40 MG/0.4 ML SYRINGE SUB-Q (09:16)
[2021-06-18] MEDS: PANTOPRAZOLE 40 MG TABLET PO (09:16)
[2021-06-18] MEDS: CALCIUM CARBONATE (OSCAL) 500 MG TABLET PO ×2 (10:47→17:44)
[2021-06-18] MEDS: ONDANSETRON INJ 4 MG/2 ML VIAL IV PUSH (11:28)
[2021-06-18] MEDS: SODIUM CHLORIDE 0.9% IV 1,000 ML 55 ML IV CONT (11:28)
[2021-06-18 12:39] LABS: Magnesium 1.6 mg/dL (1.6-2.3)
[2021-06-18 12:41] LABS: Potassium 3.4 mmol/L (3.4-5.0)
[2021-06-18 13:03] LABS: Procalcitonin 0.1 ng/mL
[2021-06-18] MEDS: MAGNESIUM SULF 2 GM/WATER 50ML 2 GM/50 ML BAG IVPB (15:54)
[2021-06-18] MEDS: SODIUM CHLORIDE 0.9% IV 250 ML 100 ML IV CONT (15:55)
[2021-06-18] MEDS: GABAPENTIN 300 MG CAPSULE PO (17:44)
[2021-06-18] MEDS: MONTELUKAST SODIUM 10 MG TABLET PO (20:02)
[2021-06-19] VITALS (16 sets, daily range): BP systolic 103–133; BP diastolic 62–74; PULSE 84–104; RESP 16–20; TEMP 36.2–36.5; O2SAT 92–95
[2021-06-19] MEDS: SODIUM CHLORIDE 0.9% IV 1,000 ML 55 ML IV CONT (02:24)
[2021-06-19] MEDS: ALBUTEROL SULFATE NEB 2.5 MG/3 ML INH 5 MG INHALATION ×3 (02:30→13:46)
[2021-06-19] MEDS: IPRATROPIUM BR 0.02% INH SOLN 0.5 MG/2.5 ML VIAL INHALATION ×3 (02:30→13:47)
[2021-06-19] MEDS: POTASSIUM CHLORIDE 20 MEQ TABLET.ER 40 MEQ PO (08:22)
[2021-06-19] MEDS: PANTOPRAZOLE 40 MG TABLET PO (08:22)
[2021-06-19] MEDS: ENOXAPARIN 40 MG/0.4 ML SYRINGE SUB-Q (08:22)
[2021-06-19] MEDS: ESCITALOPRAM OXALATE 10 MG TABLET PO (08:22)
[2021-06-19] MEDS: ASPIRIN 81 MG CHEWABLE TABLET PO (08:22)
[2021-06-19 08:38] LABS: Alanine Aminotransferase 7 U/L (6-35); Alkaline Phosphatase 65 U/L (38-126); Anion Gap 3 mmol/L (8-16); Aspartate Amino Transferase 16 U/L (14-36); Bilirubin,Total 0.2 mg/dL (0.2-1.3); Blood Urea Nitrogen 24 mg/dL (7-17); Calcium 7.9 mg/dL (8.4-10.2); Carbon Dioxide 32 mmol/L (22-30); Chloride 103 mmol/L (98-107); Estimated CRCL calculation 67 ml/min; Estimated Glomerular Filt Rate > 60; Glucose 81 mg/dL (65-110); Magnesium 1.9 mg/dL (1.6-2.3); Sodium 138 mmol/L (137-145)
[2021-06-19 08:39] LABS: Basophils Absolute Auto 0.1 K/mm3 (0.0-0.1); Basophils Percent Auto 0.9 % (0.2-1.2); Eosinophils Absolute Auto 0.2 K/mm3 (0-0.3); Eosinophils Percent Auto 2.9 % (0-4.4); Hematocrit 39.3 % (37.0-47.0); Hemoglobin 12.6 g/dL (12.0-15.0); Immature Granulocyte Absolute 0.08 K/mm3 (0.00-0.031); Lymphocytes Absolute Auto 1.84 K/mm3 (0.9-3.2); Lymphocytes Percent Auto 23.3 % (18.3-44.2); Mean Corpuscular HGB Conc 32.1 g/dl (32-36); Mean Corpuscular Hemoglobin 31.6 pg (26-34); Mean Corpuscular Volume 98.5 fl (80-100); Mean Platelet Volume 10.3 fl (7.4-10.4); Monocytes Absolute Auto 0.7 K/mm3 (0.1-0.6); Monocytes Percent Auto 8.4 % (2.6-8.5); Neutrophils Percent Auto 63.5 % (45.5-73.1); Platelet Count Result 262 k/mm3 (150-375); Red Blood Count 3.99 M/mm3 (4.2-5.4); Red Cell Distribution Width 13.8 % (11.5-14.5); White Blood Count 7.9 K/mm3 (4.5-10.0)
[2021-06-19] MEDS: CALCIUM CARBONATE (OSCAL) 500 MG TABLET PO ×2 (09:36→17:50)
[2021-06-19] MEDS: GABAPENTIN 300 MG CAPSULE PO (17:50)
--- NOTE | 2021-06-19 20:24 | PCRCNOTE ---
Pt refusing 2000 UPD treatment. Upon assessment, there was no wheezing or distress. Pt sats 95% on room air. Pt advised to call nurse if in need of UPD treatment. Next available administration at 0200.
[2021-06-19] MEDS: CEFDINIR 300 MG CAPSULE PO (20:46)
[2021-06-19] MEDS: MONTELUKAST SODIUM 10 MG TABLET PO (20:46)
[2021-06-20] VITALS (16 sets, daily range): BP systolic 104–125; BP diastolic 62–72; PULSE 83–94; RESP 16–18; TEMP 36.3–36.7; O2SAT 91–98
[2021-06-20] MEDS: ALBUTEROL SULFATE NEB 2.5 MG/3 ML INH 5 MG INHALATION ×2 (01:44→08:23)
[2021-06-20] MEDS: IPRATROPIUM BR 0.02% INH SOLN 0.5 MG/2.5 ML VIAL INHALATION ×2 (01:44→08:22)
[2021-06-20 06:57] LABS: Basophils Absolute Auto 0.1 K/mm3 (0.0-0.1); Eosinophils Absolute Auto 0.3 K/mm3 (0-0.3); Eosinophils Percent Auto 4.6 % (0-4.4); Hematocrit 38.4 % (37.0-47.0); Hemoglobin 12.3 g/dL (12.0-15.0); Immature Granulocyte Absolute 0.05 K/mm3 (0.00-0.031); Immature Granulocyte Percent A 0.7 % (0-0.5); Lymphocytes Absolute Auto 1.98 K/mm3 (0.9-3.2); Lymphocytes Percent Auto 28.7 % (18.3-44.2); Mean Corpuscular Hemoglobin 31.6 pg (26-34); Mean Corpuscular Volume 98.7 fl (80-100); Monocytes Absolute Auto 0.6 K/mm3 (0.1-0.6); Monocytes Percent Auto 8.5 % (2.6-8.5); Neutrophils Absolute Auto 3.9 K/mm3 (1.3-6.7); Neutrophils Percent Auto 56.5 % (45.5-73.1); Platelet Count Result 268 k/mm3 (150-375); Red Blood Count 3.89 M/mm3 (4.2-5.4); Red Cell Distribution Width 13.6 % (11.5-14.5); White Blood Count 6.9 K/mm3 (4.5-10.0)
[2021-06-20 07:07] LABS: Alanine Aminotransferase 8 U/L (6-35); Alkaline Phosphatase 62 U/L (38-126); Anion Gap 0 mmol/L (8-16); Aspartate Amino Transferase 18 U/L (14-36); Bilirubin,Total 0.2 mg/dL (0.2-1.3); Blood Urea Nitrogen 24 mg/dL (7-17); Carbon Dioxide 33 mmol/L (22-30); Chloride 102 mmol/L (98-107); Estimated CRCL calculation 77 ml/min; Estimated Glomerular Filt Rate > 60; Glucose 72 mg/dL (65-110); Magnesium 1.9 mg/dL (1.6-2.3); Potassium 3.9 mmol/L (3.4-5.0); Sodium 135 mmol/L (137-145)
[2021-06-20] MEDS: AZITHROMYCIN 250 MG TABLET 500 MG PO (08:29)
[2021-06-20] MEDS: PANTOPRAZOLE 40 MG TABLET PO (08:29)
[2021-06-20] MEDS: POTASSIUM CHLORIDE 20 MEQ TABLET.ER 40 MEQ PO (08:29)
[2021-06-20] MEDS: CALCIUM CARBONATE (OSCAL) 500 MG TABLET PO (08:29)
[2021-06-20] MEDS: CEFDINIR 300 MG CAPSULE PO ×2 (08:29→20:14)
[2021-06-20] MEDS: ESCITALOPRAM OXALATE 10 MG TABLET PO (08:30)
[2021-06-20] MEDS: ASPIRIN 81 MG CHEWABLE TABLET PO (08:30)
[2021-06-20] MEDS: ENOXAPARIN 40 MG/0.4 ML SYRINGE SUB-Q (08:30)
--- NOTE | 2021-06-20 08:34 | PM.DS ---
DS: Admitting Diagnosis Discharge Date 06/21/2021 1600 Admitting Diagnosis Pneumonia DS: Discharge Diagnosis Discharge Diagnosis (1) Chest pain: Code(s): R07.9 - Chest pain, unspecified Status: Acute Assessment and Plan: On 06/20/2021, patient reported new chest pain and diaphoresis. Chest pain workup revealed negative serial troponins, EKG with normal sinus, and chest x-ray showing radiation fibrosis in the right perihilar region with emphysema. Patient is chest pain free. Likely MSK in nature. Acetaminophen p.r.n. for pain. (2) Pneumonia: Code(s): J18.9 - Pneumonia, unspecified organism Status: Acute Assessment and Plan: Patient is oxygenating well on room air today. CTA chest showed no PE, mild pneumonia involving anterior segment right upper lobe and right lower lobe, worsened complete collapse of right middle lobe, severe emphysema. Lung sounds are abnormal, but this patient does have a significant history including lobectomy for treatment of lung cancer, and COPD. April 2021 culture showed E coli. COVID influenza a/B negative is Sputum Cx pending, legionella pending Continue course of PO antibiotics upon discharge. (3) Sepsis: Code(s): A41.9 - Sepsis, unspecified organism Status: Acute Assessment and Plan: WBC 5.9, patient is clinically improving from her admission WBC of > 21. Patient is afebrile. Blood culture showed no growth. Sepsis lactate 2.0. Procalcitonin 0.1, low risk for sepsis. Pt did well on PO fluid rehydration challenge. Plan as above (4) Malignant neoplasm of unspecified part of unspecified bronchus or lung: Code(s): C34.90 - Malignant neoplasm of unspecified part of unspecified bronchus or lung Status: Inactive Assessment and Plan: CTPA notes 8 mm pulmonary nodule, increased from 6 mm 06/2017. Follow up with pulmonology as outpatient (5) COPD (chronic obstructive pulmonary disease): Code(s): J44.9 - Chronic obstructive pulmonary disease, unspecified Status: Acute Assessment and Plan: No current exacerbation, and patient remains on room air with good saturations. Continue all home meds upon discharge. (6) Anxiety disorder: Code(s): F41.9 - Anxiety disorder, unspecified Status: Inactive Assessment and Plan: Continue lexapro (7) Electrolyte abnormality: Code(s): E87.8 - Other disorders of electrolyte and fluid balance, not elsewhere classified Status: Acute Assessment and Plan: Normalized during patient's stay. Corrected calcium Ca 8.8 Oscal BIDWM K 3.9 Mg 1.9 DS: Summary Hospital Course Reason for hospitalization: Pneumonia/Sepsis Hospital Course: See above for full hospital Course Status at Discharge Overall status at discharge: patient is progressing back to baseline Time Spent with Patient Time attestation: Total time spent providing and/or coordinating discharge services: 35 mins Time spent: Greater than 30 minutes Exam Narrative: GENERAL APPEARANCE: Cachectic, chronically ill-appearing female. Alert and oriented x 3, in some distress due to nausea. HEENT: PERRL, EOMI. Sclerae anicteric. Moist mucous membranes. NECK: Supple. No JVD or obvious carotid bruits. RESPIRATORY: Respirations are mildly labored. Bronchial breath sounds, rhonchi, inspiratory and expiratory, throughout. CARDIOVASCULAR: Regular rate and rhythm with normal S1-S2. No murmurs, gallops, or rubs. GASTROINTESTINAL: Soft, flat, and benign. No mass, tenderness, guarding, or rebound. No organomegaly or hernia. Bowel sounds are present. SKIN: Warm, dry, well perfused. Good turgor. No lesions, nodules, or rashes noted. Warm and dry. No rash or lesions on limited exam. EXTREMITIES: No cyanosis, clubbing, or edema. Radial and pedal pulses intact. NEUROLOGICAL: Alert. Cranial nerves 2-12 are grossly intact. No g
--- NOTE | 2021-06-20 13:36 | ECG_ITS ---
Measurements Intervals [place] Rate: 92 P: 77 [place]: 138 QRS: 54 QRSD: 73 T: 73 QT: 350 QTc: 433 Interpretive Statements SINUS RHYTHM NORMAL ECG Electronically Signed On 06-20-2021 13:56:40 CDT by Efraín Riley D.O.
[2021-06-20 14:29] LABS: Troponin I < 0.012 ng/mL (0.000-0.034)
--- NOTE | 2021-06-20 16:13 | PM.IMPN ---
Progress Note: A&P Assessment and Plan (1) Chest pain: Code(s): R07.9 - Chest pain, unspecified Status: Acute Assessment and Plan: Patient endorses no chest pain and diaphoresis today. Chest pain workup initiated which showed the following Radiation fibrosis in the right perihilar region, emphysema. EKG showed normal sinus rhythm. Normal EKG Initial troponin was normal. Following for repeat troponin (2) Pneumonia: Code(s): J18.9 - Pneumonia, unspecified organism Status: Acute Assessment and Plan: Patient is oxygenating well on room air today. CTA chest showed no PE, mild pneumonia involving anterior segment right upper lobe and right lower lobe, worsened complete collapse of right middle lobe, severe emphysema. Lung sounds are abnormal, but this patient does have a significant history including lobectomy for treatment of lung cancer, and COPD. April 2021 culture showed E coli. COVID influenza a/B negative is Sputum Cx pending legionella pending Continue antibiotics today. Continue course of PO antibiotics upon discharge tomorrow. (3) Sepsis: Code(s): A41.9 - Sepsis, unspecified organism Status: Acute Assessment and Plan: WBC 6.9, patient is clinically improving from her admission WBC of > 21. Patient is afebrile. Blood culture showed no growth. Sepsis lactate 2.0. Procalcitonin 0.1, low risk for sepsis. Pt did well on PO fluid rehydration challenge. Plan as above (4) Malignant neoplasm of unspecified part of unspecified bronchus or lung: Code(s): C34.90 - Malignant neoplasm of unspecified part of unspecified bronchus or lung Status: Inactive Assessment and Plan: CTPA notes 8 mm pulmonary nodule, increased from 6 mm 06/2017. Follow up with pulmonology as outpatient (5) COPD (chronic obstructive pulmonary disease): Code(s): J44.9 - Chronic obstructive pulmonary disease, unspecified Status: Acute Assessment and Plan: No current exacerbation, and patient remains on room air with good saturations. Continue all home meds upon discharge. (6) Anxiety disorder: Code(s): F41.9 - Anxiety disorder, unspecified Status: Inactive Assessment and Plan: Continue lexapro (7) Electrolyte abnormality: Code(s): E87.8 - Other disorders of electrolyte and fluid balance, not elsewhere classified Status: Acute Assessment and Plan: Normalized during patient's stay. Corrected calcium Ca 8.8 K 3.9 Mg 1.9 Additional Plan Patient was hospitalized in April with UTI and pneumonia. UA unremarkable. Subjective Date/time seen: 06/20/21 16:13 Interval history: 55 yo F PMHx of anxiety/bipolar disorder, HFpEF (04/2021 TTE LVEF 60-65% with grade I DD), COPD, h/o lung ca s/p BROOKE lobectomy and later had chemo/RT. Presents with couple weeks of body aches. Patient endorses chest pain and hot flashes today. She denies palpitations, shortness of breath, edwina fever, or chills. Discussed chest pain workup with the patient she agrees with course of action. Exam Narrative: GENERAL APPEARANCE: Cachectic, chronically ill-appearing female. Alert and oriented x 3, in some distress due to nausea. HEENT: PERRL, EOMI. Sclerae anicteric. Moist mucous membranes. NECK: Supple. No JVD or obvious carotid bruits. RESPIRATORY: Respirations are mildly labored. Bronchial breath sounds, rhonchi, inspiratory and expiratory, throughout. CARDIOVASCULAR: Regular rate and rhythm with normal S1-S2. No murmurs, gallops, or rubs. GASTROINTESTINAL: Soft, flat, and benign. No mass, tenderness, guarding, or rebound. No organomegaly or hernia. Bowel sounds are present. SKIN: Warm, dry, well perfused. Good turgor. No lesions, nodules, or rashes noted. Warm and dry. No rash or lesions on limited exam. EXTREMITIES: No cyanosis, clubbing, or edema. Radial and pedal pulses inta
[2021-06-20 17:24] LABS: Troponin I < 0.012 ng/mL (0.000-0.034)
[2021-06-20] MEDS: GABAPENTIN 300 MG CAPSULE PO (17:49)
[2021-06-20] MEDS: MONTELUKAST SODIUM 10 MG TABLET PO (20:14)
[2021-06-20 20:20] LABS: Troponin I < 0.012 ng/mL (0.000-0.034)
[2021-06-21 02:24] VITALS: RESP 16
[2021-06-21] MEDS: ALBUTEROL SULFATE NEB 2.5 MG/3 ML INH 5 MG INHALATION ×2 (02:26→09:19)
[2021-06-21] MEDS: IPRATROPIUM BR 0.02% INH SOLN 0.5 MG/2.5 ML VIAL INHALATION ×2 (02:26→09:20)
[2021-06-21 02:44] VITALS: RESP 16
[2021-06-21 05:38] VITALS: BP 110/82; PULSE 96; RESP 18; TEMP 36.7; O2SAT 92
[2021-06-21 06:17] LABS: Basophils Absolute Auto 0.1 K/mm3 (0.0-0.1); Basophils Percent Auto 1.2 % (0.2-1.2); Eosinophils Absolute Auto 0.4 K/mm3 (0-0.3); Eosinophils Percent Auto 6.3 % (0-4.4); Hematocrit 41.2 % (37.0-47.0); Hemoglobin 13.1 g/dL (12.0-15.0); Immature Granulocyte Absolute 0.04 K/mm3 (0.00-0.031); Immature Granulocyte Percent A 0.7 % (0-0.5); Lymphocytes Percent Auto 33.8 % (18.3-44.2); Mean Corpuscular HGB Conc 31.8 g/dl (32-36); Mean Corpuscular Hemoglobin 31.2 pg (26-34); Mean Corpuscular Volume 98.1 fl (80-100); Mean Platelet Volume 9.8 fl (7.4-10.4); Monocytes Absolute Auto 0.5 K/mm3 (0.1-0.6); Monocytes Percent Auto 8.1 % (2.6-8.5); Neutrophils Percent Auto 49.9 % (45.5-73.1); Platelet Count Result 283 k/mm3 (150-375); Red Cell Distribution Width 13.8 % (11.5-14.5); White Blood Count 5.9 K/mm3 (4.5-10.0)
[2021-06-21 06:27] LABS: Alanine Aminotransferase 11 U/L (6-35); Albumin Level 3.2 g/dL (3.5-5.1); Alkaline Phosphatase 65 U/L (38-126); Anion Gap 3 mmol/L (8-16); Aspartate Amino Transferase 23 U/L (14-36); Bilirubin,Total 0.2 mg/dL (0.2-1.3); Blood Urea Nitrogen 22 mg/dL (7-17); Calcium 8.5 mg/dL (8.4-10.2); Carbon Dioxide 34 mmol/L (22-30); Chloride 99 mmol/L (98-107); Estimated CRCL calculation 67 ml/min; Estimated Glomerular Filt Rate > 60; Glucose 88 mg/dL (65-110); Potassium 4.3 mmol/L (3.4-5.0); Sodium 136 mmol/L (137-145)
[2021-06-21 08:00] VITALS: BP 102/71; PULSE 98; RESP 20; TEMP 35.8; O2SAT 94; O2SAT 95
[2021-06-21 09:15] VITALS: PULSE 92; RESP 16; O2SAT 93
[2021-06-21] MEDS: ALBUTEROL SULFATE NEB 2.5 MG/0.5 ML INH (09:18)
[2021-06-21 09:23] VITALS: PULSE 90; RESP 16; O2SAT 93
[2021-06-21] MEDS: CALCIUM CARBONATE (OSCAL) 500 MG TABLET PO (09:29)
[2021-06-21] MEDS: CEFDINIR 300 MG CAPSULE PO (09:29)
[2021-06-21] MEDS: ESCITALOPRAM OXALATE 10 MG TABLET PO (09:29)
[2021-06-21] MEDS: POTASSIUM CHLORIDE 20 MEQ TABLET.ER 40 MEQ PO (09:29)
[2021-06-21] MEDS: AZITHROMYCIN 250 MG TABLET 500 MG PO (09:29)
[2021-06-21] MEDS: PANTOPRAZOLE 40 MG TABLET PO (09:29)
[2021-06-21] MEDS: ENOXAPARIN 40 MG/0.4 ML SYRINGE SUB-Q (09:30)
[2021-06-21] MEDS: ASPIRIN 81 MG CHEWABLE TABLET PO (09:30)
[2021-06-22 17:05] LABS: Legionella pneumophila Ag Ur Not Detected (Not Detected)
--- NOTE | 2021-06-29 12:54 | PC.NURSE ---
Urine legionella Ag is negative.
== END 2021-06-21 16:42 | disposition home or self-care (01) | DRG 871 ==
LOC: ANHED 19:44 → ANH3MEDSUR 21:33
PROVIDERS: Emergency Medicine; Admitting Provider Internal Medicine; Emergency Provider Emergency Medicine; PCP Internal Medicine; Visit Provider Student in an Organized Health Care Education/Training Program
DX: A41.9 Sepsis, unspecified organism (principal); J18.9 Pneumonia, unspecified organism; C34.90 Malignant neoplasm of unspecified part of unspecified bronchus or lung; I50.30 Unspecified diastolic (congestive) heart failure; J44.9 Chronic obstructive pulmonary disease, unspecified; F41.9 Anxiety disorder, unspecified; Z86.73 Personal history of transient ischemic attack (TIA), and cerebral infarction without residual deficits; F32.9 Major depressive disorder, single episode, unspecified; E87.8 Other disorders of electrolyte and fluid balance, not elsewhere classified; F17.210 Nicotine dependence, cigarettes, uncomplicated; Z90.2 Acquired absence of lung [part of]; R90.82 White matter disease, unspecified; R07.9 Chest pain, unspecified; Z79.899 Other long term (current) drug therapy
CPT/HCPCS: 36415; 36600; 71045; 71275; 80053; 81001; 82375; 82805; 83050; 83605; 83735; 83880; 84132; 84145; 84484; 85025; 85610; 85730; 87040; 87070; 87205; 87449; 93005; 94640; 96365; 96366; 96367; 96372; 96375; 99285; A9270; C9803; G0378; J0456; J0696; J1650; J1956; J2405; J2930; J3370; J3475; J7030; J7050; Q9967; U0003; U0005

== ENCOUNTER 2021-07-07 22:43 | Inpatient (IN) | payer OTHER, SELFPAY ==
--- NOTE | ~2021-07-07 | CT_ITS ---
EXAMINATION: CTA chest PE protocol DATE: 07/09/2021 02:36 INDICATION: Hypoxia TECHNIQUE: Computed tomography angiography (CTA) of the chest was performed with 100 mL Omnipaque-350 intravenous contrast timed to evaluate the pulmonary arteries. Coronal maximum intensity projection 3D-reconstructions were created by the technologist. The dose-length product (DLP) was 154.02 mGy-cm. Automated exposure control and iterative reconstruction technique were employed. COMPARISON: 06/16/2021. FINDINGS: The pulmonary arteries are well-opacified. No pulmonary embolism is identified. Motion arianna fact limits evaluation of the lung bases. Previously described airspace opacities of the right upper and lower lobes have nearly completely resolved. Again noted is an 8 mm nodule in the right lower lob e. There is severe emphysema. There is paramediastinal radiation fibrosis with minimal pulmonary suzi rial flow to the right upper lobe. There is collapse of the right middle lobe. There is no pleural ef fusion or pneumothorax. IMPRESSION: 1. No pulmonary embolus identified, sensitivity in the lung bases limited by motion artifact. 2. Near complete resolution of previously described pneumonia of the right lung. 3. Right middle lobe collapse. 4. 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 Right lower lobe nodule, benign versus low-grade neoplasm. 6. Severe emphysema. Reviewed, dictated and finalized at location A. IMPRESSION: 1. No pulmonary embolus identified, sensitivity in the lung bases limited by mo tion artifact. 2. Near complete resolution of previously described pneumonia of the right lung . 3. Right middle lobe collapse. 4. 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 Right lower lobe nodule, benign versus low-grade neoplasm. 6. Severe emphysema.
--- NOTE | ~2021-07-07 | US_ITS ---
EXAMINATION: US carotid duplex BI DATE: 07/10/2021 11:02 INDICATION: Altered mental status, CVA TECHNIQUE: Grayscale, color Doppler, and pulsed Doppler images of the cervical carotid arteries were obtained. The degree of vessel stenosis is placed in one of the following categories: normal, <50%, 5 0-69%, >=70% but less than near-occlusion, near-occlusion, or total occlusion. Note that percent sten osis relative to normal distal artery lumen diameter is indirectly measured from velocity measurement s as described by Manuel, et al. Radiology 2003; 229:340-346. COMPARISON: None. FINDINGS: RIGHT: The right common carotid artery (CCA) peak systolic velocity (PSV) is 77 cm/s. The right internal car otid artery (ICA) PSV is 77 cm/s. The right ICA end-diastolic velocity (EDV) is 9.5 cm/s. The right I CA/CCA PSV ratio is 1.1. Grayscale and color Doppler images yield an estimate of less than 50% diamet er reduction from plaque in the ICA. The external carotid artery (ECA) PSV is 142 cm/s. There is ante grade flow in the right vertebral artery. LEFT: The left CCA PSV is 76 cm/s. The left ICA PSV is 68 cm/s. The left ICA EDV is 8.9 cm/s. The left ICA/ CCA PSV ratio is 0.9. Grayscale and color Doppler images yield an estimate of less than 50% diameter reduction from plaque in the ICA. The ECA PSV is 100 cm/s. There is antegrade flow in the left verteb ral artery. IMPRESSION: 1. <50% stenosis in the right internal carotid artery. 2. <50% stenosis in the left internal carotid artery. Reviewed, dictated and finalized at location A.
--- NOTE | ~2021-07-07 | XR_ITS ---
XR chest 1V portable 07/08/2021 01:08 Indication: Shortness of breath Procedure: AP portable chest Comparison: Comparison to multiple prior studies sequentially, with oldest reviewed study dated 04/18. Findings: There are emphysematous changes. There are chronic interstitial infiltrates of the lower rusty ngs. There are surgical changes of the left upper lobe. There is radiation fibrosis in the right munira hilar region. No acute focal pneumonia, edema or effusion. Impression: 1: No acute cardiopulmonary disease. Reviewed, dictated and finalized at location A. Impression: 1: No acute cardiopulmonary disease.
--- NOTE | ~2021-07-07 | MR_ITS ---
EXAMINATION: MR brain/brain stem wo con DATE: 07/08/2021 16:19 INDICATION: Altered mental status. Cerebral infarct. TECHNIQUE: Magnetic resonance imaging (MRI) of the brain and brainstem was performed without intraven ous contrast. COMPARISON: Head CT 07/08/2021 FINDINGS: There is no intracranial hemorrhage, acute infarction, or abnormal intracranial mass lesion . There is an infarct involving the right basal ganglia and anterior limb right internal capsule josep acterized by increased T2-weighted signal intensity. There are scattered areas of nonspecific increas ed T2-weighted signal intensity in the cerebral white matter and caitlyn. The ventricles are normal in s ize. The orbits are normal. The mastoid air cells are normal. IMPRESSION: 1. Subacute versus chronic infarct involving the right basal ganglia and anterior limb right internal capsule. 2. Moderate nonspecific cerebral white matter disease and pontine disease, which likely represents ch ronic small vessel ischemic disease. Reviewed, dictated and finalized at location A. IMPRESSION: 1. Subacute versus chronic infarct involving the right basal ganglia and anteri or limb right internal capsule. 2. Moderate nonspecific cerebral white matter disease and pontine disease, whic h likely represents chronic small vessel ischemic disease.
--- NOTE | ~2021-07-07 | CT_ITS ---
EXAMINATION: CT brain wo con DATE: 07/08/2021 14:00 INDICATION: Altered metal status. TECHNIQUE: Computed tomography (CT) of the head was performed without intravenous contrast. The mA wa s adjusted according to patient size. Iterative reconstruction technique was employed. The dose-lengt h product was 1210.67 mGy-cm. COMPARISON: Head CT 03/08/18 FINDINGS: Motion artifact is noted. There is an infarct involving the right basal ganglia and anterio r limb right internal capsule. Low-attenuation in left occipital lobe may be artifact. There are scat tered areas of low attenuation in the cerebral white matter. There is no intracranial hemorrhage or a bnormal intracranial mass lesion. The ventricles are normal in size. There is mild mucosal thickening in left maxillary sinus. The orbits are normal. The mastoid air cells are normal. IMPRESSION: 1. Age-indeterminate infarct involving the right basal ganglia and anterior limb right internal capsu le, new from 03/08/2018. 2. Worsened moderate nonspecific cerebral white matter disease, which likely represents chronic small vessel ischemic disease. 3. Sensitivity and specificity are moderately decreased by motion artifact. Consider a repeat CT. Reviewed, dictated and finalized at location A. IMPRESSION: 1. Age-indeterminate infarct involving the right basal ganglia and anterior dixon b right internal capsule, new from 03/08/2018. 2. Worsened moderate nonspecific cerebral white matter disease, which likely re presents chronic small vessel ischemic disease. 3. Sensitivity and specificity are moderately decreased by motion artifact. Con home care companion a repeat CT.
[2021-07-07 22:39] VITALS: BP 107/72; PULSE 111; RESP 34; TEMP 36.6
[2021-07-07 22:49] VITALS: O2SAT 95
--- NOTE | 2021-07-07 23:02 | ECG_ITS ---
Measurements Intervals [place] Rate: 109 P: 72 [place]: 152 QRS: 22 QRSD: 82 T: 67 QT: 336 QTc: 454 Interpretive Statements SINUS TACHYCARDIA BORDERLINE ECG COMPARED TO ECG 06/20/2021 13:51:22 SINUS TACHYCARDIA NOW PRESENT Electronically Signed On 07-08-2021 16:55:19 CDT by Mata Gray M.D.
[2021-07-07] MEDS: ALBUTEROL SULFATE NEB 2.5 MG/3 ML INH 15 MG INHALATION (23:14)
[2021-07-07] MEDS: IPRATROPIUM BR 0.02% INH SOLN 0.5 MG/2.5 ML VIAL 1.5 MG INHALATION (23:14)
[2021-07-07 23:25] VITALS: PULSE 109; RESP 28
[2021-07-07 23:28] LABS: Alveolar/Arterial O2 Gradient 80.2 mmHg; Base Excess ABG -1.7 mEq/l (+/-2.0); Carboxyhemoglobin 0.9 % THb (0-2.0); Fractional Inspired Oxygen 28 %; HCO3 ABG 22.9 mEq/l (22.0-26.0); Methemoglobin ABG 0.3 %THb (0-1.5); Oxygen Content ABG 17.1 %vol (16.0-22.0); Oxygen Saturation ABG 94.8 % (95.0-100.0); Oxyhemoglobin 92.8 % THb (90.0-100.0); PCO2 ABG 38.6 mmHg (35.0-45.0); PO2 ABG 73.9 mmHg (80.0-100.0); PO2 FiO2 Ratio Arterial Blood 2.64 %; Total Hemoglobin 13.1 g/dL (12.0-18.0); pH ABG 7.392 (7.350-7.450)
[2021-07-07 23:30] LABS: Device NASAL CANNULA; Modified Allen's Test Unable to perform; Site Drawn RIGHT BRACHIAL
--- NOTE | 2021-07-07 23:39 | ED.SOB ---
HPI - SOB/Dyspnea General Chief Complaint: Shortness of Breath/Dyspnea Stated Complaint: SOB Time Seen by Provider: 07/07/21 22:47 History of Present Illness HPI Narrative: Patient is a 56-year-old female with history of COPD who presents ER with shortness of breath and chest pain. Reports chest pain as tightness and has been ongoing for 1 week. She noticed increased difficulty breathing over the last 2 to 3 days. She has been using her home inhalers without improvement. No fevers or chills or sweats. No new productive cough. She has had no loss of consciousness. Not typically oxygen and dependent but currently wearing 2 L by nasal cannula and satting in the mid 90s. Related Data Home Medications Medication Instructions Recorded Confirmed albuterol sulfate 90 mcg/actuation 2 inh inhalation Q4H PRN Wheezing 06/30/19 06/17/21 aerosol inhaler Allergies Allergy/AdvReac Type Severity Reaction Status Date / Time adhesive tape AdvReac Rash Verified 06/17/21 00:47 morphine AdvReac Vomiting Verified 06/17/21 00:47 Review of Systems Review of Systems: All systems reviewed & are unremarkable except as noted in HPI and below Constitutional: Constitutional: Denies chills and Denies fever(s) ENT: Denies nasal congestion and Denies sore throat Cardiovascular: Cardiovascular: Reports chest pain, Denies rapid heart rate and Denies radiating jaw, neck or arm pain Respiratory: Respiratory: Denies chest congestion, Reports cough (Chronic), Reports dyspnea and Reports wheezing Gastrointestinal: Gastrointestinal: Denies abdominal pain, Denies nausea and Denies vomiting Musculoskeletal: Musculoskeletal: Denies back pain and Denies myalgias PMFSH Past Medical History Medical History (Updated 07/08/21 @ 06:28 by Amador Andrea MD) Acquired absence of lung [part of] Anxiety disorder Asthma Bipolar disorder Compression of trachea due to food in esophagus History of COPD History of depression History of pleural effusion Malignant neoplasm of unspecified part of unspecified bronchus or lung Personal history of antineoplastic chemotherapy Personal history of irradiation Pleurodynia Tachycardia TIA (transient ischemic attack) White matter disease Surgical History Surgical History Status post lobectomy of lung Left lung Social History Social History Smoking packs per day: 0.5 Smoking cigarettes per day: 10.0 Years smoked: 35 Smoking pack-years: 17.50 Smoking status: Current every day smoker Second hand tobacco smoke exposure: Yes Alcohol intake: never Substance use: never Spiritual care concerns: No Exam Narrative: GENERAL: Chronically ill appearing, well-nourished, and in no acute distress. HEAD: Normocephalic, atraumatic. ENT: Mucous membranes moist. CHEST: Coarse wheezing throughout. Mild respiratory distress. HEART: Regular rate and rhythm. Normal peripheral pulses. ABDOMEN: Soft, nontender, nondistended. EXTREMITIES: Normal range of motion. No edema. SKIN: Warm, dry, no rash. NEURO: Alert and oriented x3. PSYCH: Normal mood and affect. Course Course Emergency Course: Patient required additional Ativan and some Benadryl for anxiousness. Admit to hospitalist service. Will treat for pneumonia given elevated white blood cell count respiratory changes and 1 was emphysema. Patient also received steroids. Troponin elevated but may be related hypoxia and strain, will trend. No ischemia on EKG. Reevaluation(s) Reevaluation #1: Patient increasingly agitated is now undressed and has voided over her bed. She will be given Ativan 1 mg to ease her anxiousness. Date: 07/08/21 Time: 00:17 Vital Signs Vital signs: Vital Signs Temperature 97.9 F 07/07/21 22:39 Pulse Rate 111 H 07/07/21 22:39 Respiratory Rate 34 H 07/07/21 22:39 Blood Pressure 107/72 07/07/21 22:39
[2021-07-08] VITALS (23 sets, daily range): BP systolic 90–126; BP diastolic 50–78; PULSE 88–112; RESP 14–36; TEMP 36.3–37.4; O2SAT 80–98; BMI 21.1
[2021-07-08] MEDS: LORazepam INJ (*CRX) 2 MG/ML VIAL 1 MG IV PUSH (00:16)
--- NOTE | 2021-07-08 00:55 | PC.NURSE ---
Talked to Juana (microbiology lab technician/phlebotomy) at 00:55 to have draw lactic. Told her myself, Eva and Mumtaz tried multiple times to draw blood
[2021-07-08 01:40] LABS: Alanine Aminotransferase 20 U/L (6-35); Albumin Level 3.9 g/dL (3.5-5.1); Alkaline Phosphatase 85 U/L (38-126); Anion Gap 12 mmol/L (8-16); Aspartate Amino Transferase 38 U/L (14-36); Blood Urea Nitrogen 20 mg/dL (7-17); Calcium 8.6 mg/dL (8.4-10.2); Carbon Dioxide 21 mmol/L (22-30); Chloride 102 mmol/L (98-107); Estimated CRCL calculation 60 ml/min; Estimated Glomerular Filt Rate > 60; Glucose 137 mg/dL (65-110); Potassium 3.4 mmol/L (3.4-5.0); Sodium 135 mmol/L (137-145)
--- NOTE | 2021-07-08 01:45 | PC.NURSE ---
Pt noted to have been found yelling at the xray golf technician, Don't touch me! I am hot! Give me a motherfucking cold washcloth! This nurse intervened to the situation. Due to the location of the xray machine, this nurse was not able to promptly hand pt a cold washcloth and the pt proceeded to yell profanities at this nurse. This nurse attempted to deescalate the pt, but she proceeded to rip off her heart monitor, breathing tx, gown, and promptly rolled around in urine that she had created on the bed just prior. This nurse called in the help of two other staff members and the MD Andrea for assistance. Pt was able to safely be pulled back up in bed and MD Andrea ordered Ativan for the pt erratic and difficult to understand behavior. Pt demonstrated a level of calmness post medication injection.
[2021-07-08 01:59] LABS: NT Pro B Type Natriuretic Pept 1690 pg/mL (5-100)
[2021-07-08] MEDS: LORazepam INJ (*CRX) 2 MG/ML VIAL IM (02:09)
[2021-07-08] MEDS: diphenhydrAMINE HCl INJ 50 MG/ML VIAL 25 MG IV PUSH (02:59)
[2021-07-08 03:04] LABS: Basophils Absolute Auto 0.1 K/mm3 (0.0-0.1); Basophils Percent Auto 0.5 % (0.2-1.2); Eosinophils Absolute Auto 0.1 K/mm3 (0-0.3); Eosinophils Percent Auto 0.5 % (0-4.4); Hematocrit 36.2 % (37.0-47.0); Hemoglobin 12.1 g/dL (12.0-15.0); Immature Granulocyte Absolute 0.04 K/mm3 (0.00-0.031); Immature Granulocyte Percent A 0.3 % (0-0.5); Lymphocytes Percent Auto 7.7 % (18.3-44.2); Mean Corpuscular HGB Conc 33.4 g/dl (32-36); Mean Corpuscular Hemoglobin 31.7 pg (26-34); Mean Corpuscular Volume 94.8 fl (80-100); Monocytes Absolute Auto 1.4 K/mm3 (0.1-0.6); Monocytes Percent Auto 10.4 % (2.6-8.5); Neutrophils Absolute Auto 10.5 K/mm3 (1.3-6.7); Neutrophils Percent Auto 80.6 % (45.5-73.1); Platelet Count Result 227 k/mm3 (150-375); Red Blood Count 3.82 M/mm3 (4.2-5.4); Red Cell Distribution Width 13.7 % (11.5-14.5)
[2021-07-08] MEDS: methylPREDNISolone SOD SUCC 125 MG VIAL IV PUSH (03:56)
--- NOTE | 2021-07-08 04:44 | PC.NURSE ---
Addendum entered by Honey Saini RN 07/08/21 04:46: This took place at 0340 Original Note: This nurse attempted to help the field applications specialist get blood work since the pt IV was infiltrated. This nurse attempted to hold the pt arm while this nurse placed an IV. This nurse was met with resistance from the pt who attempted to kick, hit, and scream profanities at staff. This nurse called in 3 other staff members and MD Andrea for help in calming down the pt. Medication orders placed.
[2021-07-08 04:46] LABS: SARS-CoV-2 RNA PCR Negative
[2021-07-08 05:28] LABS: Troponin I 0.113 ng/mL (0.000-0.034)
--- NOTE | 2021-07-08 06:01 | ADMGEN ---
This patient, Alee Robison, was admitted to IMU Room 205-01. Patient/family oriented to hospital policies and general routines including ID bracelet, bed and alarms, visiting hours, pain management, procedures, bathroom and other care routines, personal items, smoking policy, room service/diet, and visiting hours. Information on how to activate the Rapid Response Team has been discussed. Patient/Family are encouraged to report perceived risks to care and to ask questions if they do not understand what they are told or what they should do.
[2021-07-08] MEDS: IPRATROPIUM BR 0.02% INH SOLN 0.5 MG/2.5 ML VIAL INHALATION ×2 (08:14→19:46)
[2021-07-08] MEDS: ALBUTEROL SULFATE NEB 2.5 MG/0.5 ML INH 5 MG (08:14)
[2021-07-08 08:29] LABS: Troponin I 0.081 ng/mL (0.000-0.034)
[2021-07-08 10:53] LABS: D Dimer 0.71 ug/mL (<0.48)
[2021-07-08] MEDS: methylPREDNISolone SOD SUCC 125 MG VIAL 60 MG IV PUSH ×3 (11:21→23:25)
--- NOTE | 2021-07-08 12:23 | PM.IMHP ---
H&P: HPI History of Present Illness Date/Time: 07/08/21 12:23 Chief Complaint: chest pain Narrative: 55 yo F PMHx of anxiety/bipolar disorder, depression, TIA, HFpEF (04/2021 TTE LVEF 60-65% with grade I DD), COPD, h/o lung ca s/p BROOKE lobectomy and later had chemo/RT, who presented to the ED initially for chest pain and shortness of breath. On my arrival today patient is very lethargic/somnolent and it is incredibly difficult to get a history from her. She is alert to self and year only. She only answers some of my questions today and therefore much of the history is gathered from chart review and ER note. Apparently patient presented to the ED last night for chest tightness x1 week and shortness of breath x 2-3 days. Has been using her home inhalers without relief. Has a chronic cough without any sputum changes. Denies fevers, chills. Was hypoxic in ED requiring 2L NC and does not normally wear home oxygen. Chart review shows two recent admission for pneumonia. ER workup was significant for leukocytosis of 13.0 and patient was started on IV abx for pneumonia and admitted as observation status. CXR showed chronic interstitial infiltrates but showed no acute focal pneumonia, edema, or effusion. Apparently, patient was anxious in the ED and required sedation with Ativan and Benadryl. Further hx limited secondary to patient's current mental status. Review of Systems Review of Systems: ROS unobtainable: Yes unobtainable due to mental status PMFSH Past Medical History Medical History (Updated 07/08/21 @ 12:43 by La Nena Osorio PA-C) Acquired absence of lung [part of] Anxiety disorder Asthma Bipolar disorder History of COPD History of depression History of pleural effusion Malignant neoplasm of unspecified part of unspecified bronchus or lung Personal history of antineoplastic chemotherapy Personal history of irradiation Pleurodynia TIA (transient ischemic attack) White matter disease Surgical History Surgical History Status post lobectomy of lung Left lung Social History Social History Smoking packs per day: 0.5 Smoking cigarettes per day: 10.0 Years smoked: 35 Smoking pack-years: 17.50 Smoking status: Current every day smoker Second hand tobacco smoke exposure: Yes Alcohol intake: never Substance use: never Spiritual care concerns: No Meds Home Medications and Allergies Home Medications Medication Instructions Recorded Confirmed Type albuterol sulfate 90 mcg/actuation 2 inh inhalation Q4H PRN Wheezing 06/30/19 06/17/21 History aerosol inhaler aspirin 81 mg chewable tablet 81 mg PO DAILY@0800 #30 tabs 04/22/21 06/17/21 Rx (Children's Aspirin) azithromycin 250 mg tablet 500 mg PO DAILY 1 day #2 tabs 06/20/21 Rx (Zithromax) cefdinir 300 mg capsule 300 mg PO Q12HR 3 days #6 caps 06/20/21 Rx Allergies Allergy/AdvReac Type Severity Reaction Status Date / Time adhesive tape AdvReac Rash Verified 06/17/21 00:47 morphine AdvReac Vomiting Verified 06/17/21 00:47 Vital Signs Vital Signs - 24 hr 07/07/21 22:39 07/07/21 22:49 07/07/21 22:49 Temperature 97.9 F Pulse Rate 111 H Respiratory Rate 34 H Blood Pressure 107/72 Pulse Oximetry 95 95 Oxygen Delivery Nasal Cannula Nasal Cannula Nasal Cannula Oxygen Flow Rate 2 2 2 07/07/21 23:25 07/08/21 00:17 07/08/21 00:38 Temperature Pulse Rate 109 H 112 H 102 H Respiratory Rate 28 H 34 H 14 Blood Pressure 126/60 92/50 L Pulse Oximetry 94 80 L Oxygen Delivery Oxygen Flow Rate 07/08/21 00:47 07/08/21 00:20 07/08/21 04:48 Temperature Pulse Rate 99 102 H Respiratory Rate 32 H 20 Blood Pressure 91/65 L Pulse Oximetry 95 96 Oxygen Delivery Room Air Oxygen Flow Rate 07/08/21 02:31 07/08/21 04:31 07/08/21 05:01 Temperature Pulse Rate 95 96 92
--- NOTE | 2021-07-08 15:41 | PC.NURSE ---
Patient to CT/MRI.
[2021-07-08 18:04] LABS: Appearance Urine Clear (Clear); Bilirubin Urine Negative (Negative); Blood Urine Negative (Negative); Color Urine Yellow (Yellow); Glucose Urine UA Negative (Negative); Ketones Urine Trace mg/dL (Negative); Leukocyte Esterase Ur Negative LEU/UL (Negative); Nitrate Urine Negative (Negative); Protein Urine Trace mg/dL (Negative); Urobilinogen Urine 0.2 mg/dL (<2.0)
[2021-07-08 18:17] LABS: Barbiturate Screen Urine Negative (Negative); Benzodiazepines Screen Urine Negative (Negative)
[2021-07-08 18:18] LABS: Mucus Urine Rare /lpf; RBC Urine 0-2 /hpf (0-2); Squamous Epithelial Cell Urine Occasional /hpf (Few); WBC Urine 0-3 /hpf
[2021-07-08 18:21] LABS: Add Urine Microscopic? YES
[2021-07-08 18:48] LABS: Amphetamine Screen Urine Positive (Negative); Cannabinoid Screen Urine Negative (Negative); Cocaine Screen Urine Negative (Negative); Methadone Screen Urine Negative (Negative); Opiate Screen Urine Negative (Negative); Phencyclidine Screen Urine Negative (Negative)
[2021-07-08] MEDS: ALBUTEROL SULFATE NEB 2.5 MG/3 ML INH 5 MG INHALATION (19:46)
[2021-07-08] MEDS: LIDOCAINE HCL 1% PF INJ 5 ML VIAL INFILTRATE (21:19)
[2021-07-08] MEDS: SALINE LOCK FLUSH 10 ML IV PUSH (21:22)
[2021-07-09] VITALS (22 sets, daily range): BP systolic 89–98; BP diastolic 51–67; PULSE 86–114; RESP 16–28; TEMP 36.3–36.9; O2SAT 90–98
[2021-07-09] MEDS: IPRATROPIUM BR 0.02% INH SOLN 0.5 MG/2.5 ML VIAL INHALATION ×3 (01:51→14:36)
[2021-07-09] MEDS: ALBUTEROL SULFATE NEB 2.5 MG/3 ML INH 5 MG INHALATION ×3 (01:51→14:37)
--- NOTE | 2021-07-09 04:31 | PC.NURSE ---
Made aware that patient is requesting to sign out AMA. Spoke with patient and explained that she came in confused and tonight had a test to rule out a blood clot in her lungs. We do not have results yet and if she left she would be putting her life in danger by way of stroke or cardiac arrest. Further explained that with her lab values and previous confusion she may need another day or two in the hospital regardless. Pt exclaims that in two days she may be broke . Patient reports people she knows are in her house and she is afraid they are using her debit card. This RN bluntly stated you have to make a decision of risking being broke or being . Pt states she may as well be if I have no money to live . Suggested calling someone to check on her friends or calling police to go to house and patient declines. When questioned about transportation patient admits she doesn't know how she would get home as she doesn't even have a dollar . Explained that we can't force her to stay, it is her decision, but there is no point signing out AMA when she has no way to get home so she should stay and be treated at least until she can get a ride. Patient currently talking to friend who she states lives in [facility] in attempt to arrange transportation. Dr. Skelton made aware of situation.
--- NOTE | 2021-07-09 04:38 | PC.NURSE ---
Pt used the call light to alert the nurse that she needed to sign herself out. was worried that her wallet was not in her purse. RN found her wallet in the other bag of belongings and gave it to the pt. She was relieved at first, but then upon checking it found that her debit card was not in her wallet. She used the call light to again state that she needed to sign herself out. Pt is concerned that the people staying/living with her have her debit card and is worried that the last of her money will be gone. RN explained concerns of patient possibly having a pulmonary embolism and associated risk for if untreated. Pt states she understands. industrial relations officer notified.
[2021-07-09] MEDS: methylPREDNISolone SOD SUCC 125 MG VIAL 60 MG IV PUSH (05:28)
[2021-07-09] MEDS: SALINE LOCK FLUSH 10 ML IV PUSH ×3 (05:29→21:03)
[2021-07-09 05:58] LABS: Alanine Aminotransferase 22 U/L (6-35); Albumin Level 3.5 g/dL (3.5-5.1); Alkaline Phosphatase 76 U/L (38-126); Anion Gap 7 mmol/L (8-16); Aspartate Amino Transferase 36 U/L (14-36); Bilirubin,Total 0.2 mg/dL (0.2-1.3); Blood Urea Nitrogen 24 mg/dL (7-17); Calcium 8.9 mg/dL (8.4-10.2); Carbon Dioxide 28 mmol/L (22-30); Chloride 99 mmol/L (98-107); Estimated CRCL calculation 56 ml/min; Estimated Glomerular Filt Rate > 60; Glucose 197 mg/dL (65-110); Potassium 3.5 mmol/L (3.4-5.0); Sodium 134 mmol/L (137-145)
[2021-07-09 06:01] LABS: Basophils Percent Auto 0.2 % (0.2-1.2); Hematocrit 36.9 % (37.0-47.0); Hemoglobin 12.1 g/dL (12.0-15.0); Immature Granulocyte Absolute 0.12 K/mm3 (0.00-0.031); Immature Granulocyte Percent A 0.7 % (0-0.5); Lymphocytes Absolute Auto 0.52 K/mm3 (0.9-3.2); Lymphocytes Percent Auto 2.8 % (18.3-44.2); Mean Corpuscular HGB Conc 32.8 g/dl (32-36); Mean Corpuscular Hemoglobin 31.3 pg (26-34); Mean Corpuscular Volume 95.3 fl (80-100); Mean Platelet Volume 10.4 fl (7.4-10.4); Monocytes Absolute Auto 0.8 K/mm3 (0.1-0.6); Monocytes Percent Auto 4.1 % (2.6-8.5); Neutrophils Percent Auto 92.2 % (45.5-73.1); Platelet Count Result 261 k/mm3 (150-375); Red Blood Count 3.87 M/mm3 (4.2-5.4); White Blood Count 18.4 K/mm3 (4.5-10.0)
[2021-07-09] MEDS: FLUTICASONE/UMECLIDIN/VILANTER 100-62.5-25 MCG ELLIPTA 1 PUFF INHALATION (08:15)
--- NOTE | 2021-07-09 08:15 | PM.IMPN ---
Progress Note: A&P Assessment and Plan (1) Acute metabolic encephalopathy: Code(s): G93.41 - Metabolic encephalopathy Status: Acute Assessment and Plan: -etiology not entirely clear -did have leukocytosis of 13.0 on arrival with intermittent tachycardia and tachypnea -CXR w/ no acute cardiopulmonary disease -ABG unremarkable -could be secondary to sedation in ED, Bendaryl and Ativan. Will discontinue these meds. -UA negative -UDS positive for amphetamines -CT head w/ age indeterminate infarct -MRI brain with subacute vs chronic infarct -most likely secondary to sedation in ED as this has now resolved (2) CVA (cerebral vascular accident): Code(s): I63.9 - Cerebral infarction, unspecified Status: Acute Assessment and Plan: -MRI brain with subacute versus chronic infarct involving the right basal ganglia and anterior limb right internal capsule -Started aspirin, plavix, and atorvastatin -neuro consulted (3) COPD (chronic obstructive pulmonary disease): Code(s): J44.9 - Chronic obstructive pulmonary disease, unspecified Status: Acute Assessment and Plan: -possible COPD exacerbation? -No evidence of PNA on CXR but was started on Azithromycin and Rocephin in ED for tx of CAP. Will continue those for now pending CTA which was orderd to r/o PE -Continue Solumedrol and nebs, starting to taper down steroids as patient is feeling better and is having increasing blood sugar and leukocytosis -obtain sputum culture if possible (4) Pneumonia: Code(s): J18.9 - Pneumonia, unspecified organism Status: Acute Assessment and Plan: -plan as above (5) Chest pain: Code(s): R07.9 - Chest pain, unspecified Status: Acute Assessment and Plan: -was apparently complaining of chest tightness on arrival to ED but tells me today her pain has resolved -trops minimally elevated at 0.110, 0.113, 0.081 but down trending -EKG sinus tachycardia, no ischemic changes -echo from april 2021 reviewed -possibly secondary to copd exacerbation vs pneumonia (6) Elevated troponin: Code(s): R77.8 - Other specified abnormalities of plasma proteins Status: Acute Assessment and Plan: -as above -pt is pain free currently, consider cardiology consult if pain returns Subjective Date/time seen: 07/09/21 08:15 Interval history: 55 yo F PMHx of anxiety/bipolar disorder, depression, TIA, HFpEF (04/2021 TTE LVEF 60-65% with grade I DD), COPD, h/o lung ca s/p BROOKE lobectomy and later had chemo/RT, who presented to the hospital with chest tightness and sob. Pt is feeling much better today. She is A/Ox3 and much more alert today. She denies chest pain. Has mild sob but states this is her baseline with her copd. She denies wheezing. Had some nausea this morning, no vomiting or abd pain. Review of Systems Review of Systems: All systems reviewed & are unremarkable except as noted in HPI and below Exam Narrative: General: No acute distress, non toxic Eyes: PERRL, no scleral icterus HEENT: NCAT, external ears normal, edentulous, mucous membranes moist Respiratory: No respiratory distress, diminished lung sounds throughout, scattered rhonchi Cardiovascular: RRR, no murmur Abdominal: Soft, nontender, non distended, no rebound or guarding Musculoskeletal: Moves all 4 extremities, no edema Neurological: A/Ox3, no facial asymmetry, cranial nerves II-XII grossly intact Skin: Warm, dry, no rashes Psychiatric: Normal affect, normal mood Objective Data Vital Signs Vital Signs: Vital Signs - 24 hr 07/08/21 08:19 07/08/21 10:00 07/08/21 12:11 Temperature 97.4 F L Pulse Rate 88 94 95 Respiratory Rate 20 24 H Blood Pressure 108/65 Pulse Oximetry 92 Oxygen Delivery 07/08/21 12:00 07/08/21 12:00 07/08/21 14:00 Temperature Pulse Rate 97 104 H Respiratory Rate Blood Pressure Pulse Oxime
[2021-07-09] MEDS: MONTELUKAST SODIUM 10 MG TABLET PO (09:11)
[2021-07-09] MEDS: ESCITALOPRAM OXALATE 10 MG TABLET PO (09:11)
[2021-07-09] MEDS: FAMOTIDINE 20 MG TABLET PO (09:11)
[2021-07-09] MEDS: CLOPIDOGREL BISULFATE 75 MG TABLET PO (09:14)
[2021-07-09] MEDS: ASPIRIN 81 MG ENTERIC TABLET PO (09:15)
[2021-07-09] MEDS: ATORVASTATIN 40 MG TABLET PO (09:15)
[2021-07-09] MEDS: ACETAMINOPHEN 325 MG TABLET 650 MG PO (09:17)
[2021-07-10] VITALS (16 sets, daily range): BP systolic 96–108; BP diastolic 55–64; PULSE 88–113; RESP 15–20; TEMP 36.1–37; O2SAT 92–96
[2021-07-10] MEDS: SALINE LOCK FLUSH 10 ML IV PUSH ×3 (04:20→21:04)
[2021-07-10 06:37] LABS: Basophils Percent Auto 0.2 % (0.2-1.2); Hematocrit 35.3 % (37.0-47.0); Hemoglobin 11.7 g/dL (12.0-15.0); Immature Granulocyte Absolute 0.11 K/mm3 (0.00-0.031); Immature Granulocyte Percent A 0.6 % (0-0.5); Lymphocytes Absolute Auto 1.71 K/mm3 (0.9-3.2); Lymphocytes Percent Auto 9.2 % (18.3-44.2); Mean Corpuscular HGB Conc 33.1 g/dl (32-36); Mean Corpuscular Hemoglobin 31.6 pg (26-34); Mean Corpuscular Volume 95.4 fl (80-100); Mean Platelet Volume 9.8 fl (7.4-10.4); Monocytes Absolute Auto 1.3 K/mm3 (0.1-0.6); Monocytes Percent Auto 7.2 % (2.6-8.5); Neutrophils Absolute Auto 15.4 K/mm3 (1.3-6.7); Neutrophils Percent Auto 82.8 % (45.5-73.1); Platelet Count Result 271 k/mm3 (150-375); Red Cell Distribution Width 14.1 % (11.5-14.5); White Blood Count 18.6 K/mm3 (4.5-10.0)
[2021-07-10 06:54] LABS: Anion Gap 7 mmol/L (8-16); Blood Urea Nitrogen 25 mg/dL (7-17); Calcium 8.9 mg/dL (8.4-10.2); Carbon Dioxide 26 mmol/L (22-30); Chloride 102 mmol/L (98-107); Estimated CRCL calculation 68 ml/min; Estimated Glomerular Filt Rate > 60; Glucose 85 mg/dL (65-110); Potassium 3.4 mmol/L (3.4-5.0); Sodium 135 mmol/L (137-145)
[2021-07-10] MEDS: ESCITALOPRAM OXALATE 10 MG TABLET PO (08:38)
[2021-07-10] MEDS: CLOPIDOGREL BISULFATE 75 MG TABLET PO (08:38)
[2021-07-10] MEDS: FAMOTIDINE 20 MG TABLET PO (08:38)
[2021-07-10] MEDS: ASPIRIN 81 MG ENTERIC TABLET PO (08:38)
[2021-07-10] MEDS: MONTELUKAST SODIUM 10 MG TABLET PO (08:38)
[2021-07-10] MEDS: ATORVASTATIN 40 MG TABLET PO (08:38)
[2021-07-10] MEDS: methylPREDNISolone SOD SUCC 125 MG VIAL 60 MG IV PUSH (08:39)
[2021-07-10] MEDS: IPRATROPIUM BR 0.02% INH SOLN 0.5 MG/2.5 ML VIAL INHALATION ×2 (09:07→20:44)
[2021-07-10] MEDS: ALBUTEROL SULFATE NEB 2.5 MG/3 ML INH 5 MG INHALATION ×2 (09:07→20:44)
[2021-07-10] MEDS: FLUTICASONE/UMECLIDIN/VILANTER 100-62.5-25 MCG ELLIPTA 1 PUFF INHALATION (09:09)
--- NOTE | 2021-07-10 10:28 | PM.IMPN ---
Progress Note: A&P Assessment and Plan (1) Acute metabolic encephalopathy: Code(s): G93.41 - Metabolic encephalopathy Status: Acute Assessment and Plan: -etiology not entirely clear -did have leukocytosis of 13.0 on arrival with intermittent tachycardia and tachypnea -CXR w/ no acute cardiopulmonary disease -ABG unremarkable -could be secondary to sedation in ED, Bendaryl and Ativan. Will discontinue these meds. -UA negative -UDS positive for amphetamines -CT head w/ age indeterminate infarct -MRI brain with subacute vs chronic infarct -most likely secondary to sedation in ED as this has now resolved (2) CVA (cerebral vascular accident): Code(s): I63.9 - Cerebral infarction, unspecified Status: Acute Assessment and Plan: -MRI brain with subacute versus chronic infarct involving the right basal ganglia and anterior limb right internal capsule -Started aspirin, plavix, and atorvastatin -neuro consulted (3) COPD (chronic obstructive pulmonary disease): Code(s): J44.9 - Chronic obstructive pulmonary disease, unspecified Status: Acute Assessment and Plan: -possible COPD exacerbation? -No evidence of PNA on CXR but was started on Azithromycin and Rocephin in ED for tx of CAP. Will continue those for now pending CTA which was orderd to r/o PE -Continue Solumedrol and nebs, starting to taper down steroids as patient is feeling better and is having increasing blood sugar and leukocytosis -obtain sputum culture if possible (4) Pneumonia: Code(s): J18.9 - Pneumonia, unspecified organism Status: Acute Assessment and Plan: -plan as above (5) Chest pain: Code(s): R07.9 - Chest pain, unspecified Status: Acute Assessment and Plan: -was apparently complaining of chest tightness on arrival to ED but tells me today her pain has resolved -trops minimally elevated at 0.110, 0.113, 0.081 but down trending -EKG sinus tachycardia, no ischemic changes -echo from april 2021 reviewed -possibly secondary to copd exacerbation vs pneumonia (6) Elevated troponin: Code(s): R77.8 - Other specified abnormalities of plasma proteins Status: Acute Assessment and Plan: -as above -pt is pain free currently, consider cardiology consult if pain returns Subjective Date/time seen: 07/10/21 10:28 Interval history: 55 yo F PMHx of anxiety/bipolar disorder, depression, TIA, HFpEF (04/2021 TTE LVEF 60-65% with grade I DD), COPD, h/o lung ca s/p BROOKE lobectomy and later had chemo/RT, who presented to the hospital with chest tightness and sob. Pt feels better, still mild sob w/ wheezing. A/Ox3 today. No cp/LE edema. Review of Systems Review of Systems: All systems reviewed & are unremarkable except as noted in HPI and below Exam Narrative: General: No acute distress, non toxic Eyes: PERRL, no scleral icterus HEENT: NCAT, external ears normal, edentulous, mucous membranes moist Respiratory: No respiratory distress, diminished lung sounds throughout, scattered wheezing and rhonchi Cardiovascular: RRR, no murmur Abdominal: Soft, nontender, non distended, no rebound or guarding Musculoskeletal: Moves all 4 extremities, no edema Neurological: A/Ox3, no facial asymmetry, cranial nerves II-XII grossly intact Skin: Warm, dry, no rashes Psychiatric: Normal affect, normal mood Objective Data Vital Signs Vital Signs: Vital Signs - 24 hr 07/09/21 12:00 07/09/21 14:37 07/09/21 14:50 Temperature 98.2 F Pulse Rate 106 H 107 H 100 Respiratory Rate 28 H 18 18 Blood Pressure 95/64 L Pulse Oximetry 90 Oxygen Delivery 07/09/21 12:35 07/09/21 14:00 07/09/21 16:00 Temperature 98.4 F Pulse Rate 108 H 106 H 106 H Respiratory Rate 16 Blood Pressure 94/51 L Pulse Oximetry 93 Oxygen Delivery 07/09/21 16:00 07/09/21 18:00 07/09/21 20:00 Temperature Pulse Rate 114
[2021-07-11] VITALS (8 sets, daily range): BP systolic 116–132; BP diastolic 68–74; PULSE 85–107; RESP 18; TEMP 36.4–36.6; O2SAT 93–95
--- NOTE | 2021-07-11 | ECHO_ITS ---
Patient Info Name: Alee Robison Age: 56 years : 1965 Gender: Female Ht: 67 in Wt: 136 lbs BSA: 1.71 m2 HR: 96 bpm BP: 132 / 74 mmHg Heart Rhythm: Sinus Rhythm Technical Quality: Fair Exam Date: 07/11/2021 2:54 PM Exam Location: [facility] Patient Status: Inpatient Admit Date: 07/10/2021 Staff Ordering Physician: La Nena Osorio PA-C [employer] Consultant: Laura Mahmood RDCS Attending Provider: La Nena Osorio PA-C Referring Physician: Jo RUSSELL; Exam Type: CA echo doppler w bubble study Study Info Indications - CVA Complete two-dimensional, color flow and Doppler transthoracic echocardiogram is performed with agitated saline. Contrast/Agitated Saline Contrast/Ag. Saline: Agitated Saline Amount: 20.00 ml Administered By: Brooke Beckford Existing IV Access: Yes IV Access Condition: patent with no signs of infiltration Summary 1. Normal LV size and wall thickness, normal LV systolic function, ejection fraction 65-70%, normal diastolic function. Bubble study with suboptimal image quality, unable to comment on any interatrial shunt. Normal mitral valve structure, no significant MR. Mild aortic valve sclerosis, no significant stenosis. Trivial aortic regurgitation. Trace TR, RVSP 29 mmHg. Sinus rhythm. Left Ventricle Left ventricular chamber dimension is normal. Left ventricular systolic function is normal, estimated at 65-70%. There is no increased left ventricular wall thickness. The left ventricular diastolic function is normal. Left Atria Left atrial chamber dimension is normal. Right Atria Right atrial chamber dimension is normal. Atrial Septum Intact interatrial septum visualized by agitated saline imaging. Aortic Valve There is mild aortic valve sclerosis. There is no aortic valve stenosis. There is trace aortic valve regurgitation. Pulmonic Valve The pulmonic valve is not well visualized. Mitral Valve The mitral valve has normal leaflets. There is no mitral valve regurgitation. Tricuspid Valve The tricuspid valve leaflets are normal. There is trace tricuspid valve regurgitation. Pericardium/Pleural The pericardium appears normal. Left Ventricular Outflow Tract Name Value Normal LVOT 2D LVOT Diameter 2.0 cm LVOT Doppler LVOT Peak Gradient 3 mmHg LVOT Mean Gradient 2 mmHg LVOT VTI 21 cm LVOT VTI/AV VTI Ratio 1.0 LVOT Stroke Volume 63 ml LVOT CO 5.9 l/min LVOT CI 3.5 l/min/m2 Pulmonic Valve Name Value Normal RVOT Doppler RVOT Peak Gradient 2 mmHg PV Doppler
--- NOTE | 2021-07-11 01:53 | PCRCNOTE ---
Pt asking to not be woken up for her 0 UPD treatment. Pt advised that this medication will help her and to call her nurse if she is in need of one.
[2021-07-11] MEDS: ACETAMINOPHEN 325 MG TABLET 650 MG PO ×2 (05:49→20:31)
--- NOTE | 2021-07-11 06:10 | PC.NURSE ---
Pt c/o pain in rt arm from shoulder to fingers,tylenol 650 mg given 0549.Earlier nurse had attempted to draw off mid line in rt upper arm with out success. In attempt to draw blood from midline nurse extended arm level with shoulder. Pt felt the pain was related to fluid infusion not movement of arm.Collision Repair Technician notified and pt on list for IV Nurse to evaluate midline.
[2021-07-11 06:40] LABS: Basophils Percent Auto 0.2 % (0.2-1.2); Hematocrit 38.2 % (37.0-47.0); Hemoglobin 12.1 g/dL (12.0-15.0); Immature Granulocyte Absolute 0.05 K/mm3 (0.00-0.031); Immature Granulocyte Percent A 0.4 % (0-0.5); Lymphocytes Percent Auto 16.8 % (18.3-44.2); Mean Corpuscular HGB Conc 31.7 g/dl (32-36); Mean Corpuscular Hemoglobin 30.8 pg (26-34); Mean Corpuscular Volume 97.2 fl (80-100); Mean Platelet Volume 9.9 fl (7.4-10.4); Monocytes Percent Auto 8.3 % (2.6-8.5); Neutrophils Absolute Auto 9.3 K/mm3 (1.3-6.7); Neutrophils Percent Auto 74.3 % (45.5-73.1); Platelet Count Result 277 k/mm3 (150-375); Red Blood Count 3.93 M/mm3 (4.2-5.4); Red Cell Distribution Width 14.1 % (11.5-14.5); White Blood Count 12.5 K/mm3 (4.5-10.0)
[2021-07-11 06:58] LABS: Anion Gap 6 mmol/L (8-16); Blood Urea Nitrogen 20 mg/dL (7-17); Calcium 8.3 mg/dL (8.4-10.2); Carbon Dioxide 30 mmol/L (22-30); Chloride 100 mmol/L (98-107); Estimated CRCL calculation 66 ml/min; Estimated Glomerular Filt Rate > 60; Glucose 95 mg/dL (65-110); Sodium 136 mmol/L (137-145)
[2021-07-11] MEDS: FLUTICASONE/UMECLIDIN/VILANTER 100-62.5-25 MCG ELLIPTA 1 PUFF INHALATION (08:28)
--- NOTE | 2021-07-11 08:42 | PM.IMPN ---
Progress Note: A&P Assessment and Plan (1) Acute metabolic encephalopathy: Code(s): G93.41 - Metabolic encephalopathy Status: Acute Assessment and Plan: -etiology not entirely clear -did have leukocytosis of 13.0 on arrival with intermittent tachycardia and tachypnea -CXR w/ no acute cardiopulmonary disease -ABG unremarkable -could be secondary to sedation in ED, Bendaryl and Ativan. Discontinued these meds. -UA negative -UDS positive for amphetamines -CT head w/ age indeterminate infarct -MRI brain with subacute vs chronic infarct -most likely secondary to sedation in ED vs CVA as this has now resolved (2) CVA (cerebral vascular accident): Code(s): I63.9 - Cerebral infarction, unspecified Status: Acute Assessment and Plan: -MRI brain with subacute versus chronic infarct involving the right basal ganglia and anterior limb right internal capsule -Started aspirin, plavix, and atorvastatin -neuro consulted (3) COPD (chronic obstructive pulmonary disease): Code(s): J44.9 - Chronic obstructive pulmonary disease, unspecified Status: Acute Assessment and Plan: -possible COPD exacerbation? -No evidence of PNA on CXR but was started on Azithromycin and Rocephin in ED for tx of CAP. Will continue those. Pt was also recently admitted for PNA but states her insurance didn't cover the abx when she was discharged so she never completed the course. -Continue Solumedrol and nebs, starting to taper down steroids as patient is feeling better and is having increasing blood sugar and leukocytosis -obtain sputum culture if possible (4) Pneumonia: Code(s): J18.9 - Pneumonia, unspecified organism Status: Acute Assessment and Plan: -plan as above (5) Chest pain: Code(s): R07.9 - Chest pain, unspecified Status: Acute Assessment and Plan: -was apparently complaining of chest tightness on arrival to ED but tells me today her pain has resolved -trops minimally elevated at 0.110, 0.113, 0.081 but down trending -EKG sinus tachycardia, no ischemic changes -echo from april 2021 reviewed -possibly secondary to copd exacerbation vs pneumonia (6) Elevated troponin: Code(s): R77.8 - Other specified abnormalities of plasma proteins Status: Acute Assessment and Plan: -as above -pt is pain free currently, consider cardiology consult if pain returns Subjective Date/time seen: 07/11/21 08:42 Interval history: 55 yo F PMHx of anxiety/bipolar disorder, depression, TIA, HFpEF (04/2021 TTE LVEF 60-65% with grade I DD), COPD, h/o lung ca s/p BROOKE lobectomy and later had chemo/RT, who presented to the hospital with chest tightness and sob. Pt feels better. A/Ox3 today. No cp/sob/LE edema. Still having a cough. no N/V/abd pain. Review of Systems Review of Systems: All systems reviewed & are unremarkable except as noted in HPI and below Exam Narrative: General: No acute distress, non toxic Eyes: PERRL, no scleral icterus HEENT: NCAT, external ears normal, edentulous, mucous membranes moist Respiratory: No respiratory distress, diminished lung sounds throughout, no wheezing Cardiovascular: RRR, no murmur Abdominal: Soft, nontender, non distended, no rebound or guarding Musculoskeletal: Moves all 4 extremities, no edema Neurological: A/Ox3, no facial asymmetry, cranial nerves II-XII grossly intact Skin: Warm, dry, no rashes Psychiatric: Normal affect, normal mood Objective Data Vital Signs Vital Signs: Vital Signs - 24 hr 07/10/21 09:10 07/10/21 09:23 07/10/21 10:00 Temperature Pulse Rate 101 H 101 H 100 Respiratory Rate 18 18 Blood Pressure Pulse Oximetry Oxygen Delivery 07/10/21 12:00 07/10/21 12:00 07/10/21 14:15 Temperature 98.1 F 98.6 F Pulse Rate 105 H 103 H 101 H Respiratory Rate 15 16 Blood Pressure 106/55 L 96/59 L Pulse Oximetry 92 95 Oxy
--- NOTE | 2021-07-11 10:18 | WPDNEURCNPN ---
Assessment and Plan Assessment and plan (1) CVA (cerebral vascular accident): Code(s): I63.9 - Cerebral infarction, unspecified Status: Acute Plan 1. Metabolic encephalopathy 2. Subacute infarct in subcortical region with negative ultrasound of the carotid patient will benefit from the continuation of the 81 mg aspirin daily Additional Plan continuation of the aspirin Consult date: 07/11/21 Time Seen: 10:18 Reason for consult: abnormal CT scan HPI: Alee Robison is a 56 year old female admitted to the hospital through the emergency room with ongoing history of COPD and visit to the ER for the complaints of increasing difficulties in breathing, neuro consultation has been obtained because of the abnormal MRI revealing the subacute versus chronic infarct involving the right basal ganglia and anterior limb of the right internal capsule in addition to moderate nonspecific cerebral white matter disease and pontine disease on the basis of chronic small vessel ischemic disease, patient does have ongoing history of 1. Anxiety disorder with bipolar disorder and depression 2. History of anti neoplastic chemotherapy including irradiation and 3. TIA in the past, patient has undergone lobectomy of the left lung, has history of years smoked 35 his smoking pack-years 17.5 and currently everyday smoker, medications include aspirin 81 mg daily, and pertinent investigations included MRI of the brain revealing subacute versus chronic infarct involving the right basal ganglia and anterior limb of the right internal capsule, CTA of the chest has been done for the PE protocol which is consistent with right middle lobe collapse with paramedics yes neural radiation fibrosis of the right lung and right lower lobe nodule, a Doppler study of the carotid is negative routine blood studies are with mild leukocytosis, testing for the SARS-CoV-2 it is negative Review of Systems Review of Systems: All systems reviewed & are unremarkable except as noted in HPI and below PMFSH Past Medical History Medical History Acquired absence of lung [part of] Anxiety disorder Asthma Bipolar disorder History of COPD History of depression History of pleural effusion Malignant neoplasm of unspecified part of unspecified bronchus or lung Personal history of antineoplastic chemotherapy Personal history of irradiation Pleurodynia TIA (transient ischemic attack) White matter disease Surgical History Surgical History Status post lobectomy of lung Left lung Family History Family History Father Brain cancer Mother Breast cancer Social History Social History Smoking packs per day: 0.5 Smoking cigarettes per day: 10.0 Years smoked: 35 Smoking pack-years: 17.50 Smoking status: Current every day smoker Second hand tobacco smoke exposure: Yes Alcohol intake: never Substance use: never Spiritual care concerns: No Meds Home Medications and Allergies Home Medications Medication Instructions Recorded Confirmed Type albuterol sulfate 90 mcg/actuation 2 inh inhalation Q4H PRN Wheezing 06/30/19 07/08/21 History aerosol inhaler aspirin 81 mg chewable tablet 81 mg PO DAILY@0800 #30 tabs 04/22/21 07/08/21 Rx (Children's Aspirin) budesonide-formoterol HFA 160 1 inh inhalation BID 07/08/21 07/08/21 History mcg-4.5 mcg/actuation aerosol inhaler (Symbicort) escitalopram oxalate 10 mg tablet 1 tablet PO DAILY 07/08/21 07/08/21 History famotidine 20 mg tablet 1 tablet PO DAILY 07/08/21 07/08/21 History fluticasone fur. 100 mcg-umeclid 1 ea inhalation DAILY 07/08/21 07/08/21 History 62.5 mcg-vilant 25 mcg inhalat.powder (Trelegy Ellipta) montelukast 10 mg tablet 10 mg PO DAILY 07/08/21 07/08/21 History (Singulair) Allergi
[2021-07-11] MEDS: FAMOTIDINE 20 MG TABLET PO (10:27)
[2021-07-11] MEDS: ESCITALOPRAM OXALATE 10 MG TABLET PO (10:27)
[2021-07-11] MEDS: NICOTINE (*PBKC) 21 MG PATCH 1 PATCH TRANSDERM (10:28)
[2021-07-11] MEDS: POTASSIUM CHLORIDE 20 MEQ TABLET 40 MEQ PO (10:28)
[2021-07-11] MEDS: methylPREDNISolone SOD SUCC 125 MG VIAL 60 MG IV PUSH (10:28)
[2021-07-11] MEDS: CLOPIDOGREL BISULFATE 75 MG TABLET PO (10:28)
[2021-07-11] MEDS: MONTELUKAST SODIUM 10 MG TABLET PO (10:28)
[2021-07-11] MEDS: ATORVASTATIN 40 MG TABLET PO (10:28)
[2021-07-11] MEDS: ASPIRIN 81 MG ENTERIC TABLET PO (10:29)
[2021-07-12] VITALS: PULSE 87
[2021-07-12 04:00] VITALS: PULSE 81
--- NOTE | 2021-07-12 05:19 | PCRCNOTE ---
Patient refused both treatments (1999 & 199) last night stating she is breathing fine. RN made aware.
[2021-07-12 05:54] VITALS: BP 132/83; PULSE 885; RESP 18; TEMP 36.6; O2SAT 97
[2021-07-12 06:25] LABS: Basophils Percent Auto 0.2 % (0.2-1.2); Eosinophils Percent Auto 0.2 % (0-4.4); Hemoglobin 12.4 g/dL (12.0-15.0); Immature Granulocyte Absolute 0.12 K/mm3 (0.00-0.031); Immature Granulocyte Percent A 0.9 % (0-0.5); Lymphocytes Absolute Auto 2.34 K/mm3 (0.9-3.2); Mean Corpuscular HGB Conc 31.8 g/dl (32-36); Mean Corpuscular Hemoglobin 31.2 pg (26-34); Mean Corpuscular Volume 98.2 fl (80-100); Mean Platelet Volume 9.7 fl (7.4-10.4); Monocytes Percent Auto 7.9 % (2.6-8.5); Neutrophils Absolute Auto 9.4 K/mm3 (1.3-6.7); Neutrophils Percent Auto 72.8 % (45.5-73.1); Platelet Count Result 273 k/mm3 (150-375); Red Blood Count 3.97 M/mm3 (4.2-5.4); Red Cell Distribution Width 13.7 % (11.5-14.5)
[2021-07-12 07:04] LABS: Calcium 8.1 mg/dL (8.4-10.2); Carbon Dioxide 30 mmol/L (22-30); Estimated CRCL calculation 72 ml/min; Estimated Glomerular Filt Rate > 60; Potassium 3.7 mmol/L (3.4-5.0)
[2021-07-12 07:24] LABS: Anion Gap 6 mmol/L (8-16); Blood Urea Nitrogen 24 mg/dL (7-17); Chloride 101 mmol/L (98-107); Glucose 106 mg/dL (65-110); Sodium 137 mmol/L (137-145)
[2021-07-12 08:00] VITALS: BP 121/73; PULSE 85; PULSE 92; RESP 18; TEMP 36.6; O2SAT 97
--- NOTE | 2021-07-12 08:52 | PM.DS ---
DS: Admitting Diagnosis Discharge Date 07/12/21 Admitting Diagnosis chest pain DS: Discharge Diagnosis Discharge Diagnosis (1) Acute metabolic encephalopathy: Code(s): G93.41 - Metabolic encephalopathy Status: Acute Assessment and Plan: -etiology not entirely clear -did have leukocytosis of 13.0 on arrival with intermittent tachycardia and tachypnea -CXR w/ no acute cardiopulmonary disease -ABG unremarkable -could be secondary to sedation in ED, Bendaryl and Ativan.? Discontinued these meds. -UA negative -UDS positive for amphetamines -CT head w/ age indeterminate infarct -MRI brain with subacute vs chronic infarct -most likely secondary to sedation in ED vs CVA as this has now resolved (2) CVA (cerebral vascular accident): Code(s): I63.9 - Cerebral infarction, unspecified Status: Acute Assessment and Plan: -MRI brain with?subacute versus chronic infarct involving the right basal ganglia and anterior limb right internal capsule -Started aspirin, plavix, and atorvastatin -carotid doppler WNL -echo reviewed -neuro consulted, recommends continuing asprin on discharge (3) COPD (chronic obstructive pulmonary disease): Code(s): J44.9 - Chronic obstructive pulmonary disease, unspecified Status: Acute Assessment and Plan: -possible COPD exacerbation? -No evidence of PNA on CXR but was started on Azithromycin and Rocephin in ED for tx of CAP.? Pt was also recently admitted for PNA but states her insurance didn't cover the abx when she was discharged so she never completed the course. Will send home with Augmentin on discharge. -Will also do steroid taper. -pulmonology follow up outpatient (4) Pneumonia: Code(s): J18.9 - Pneumonia, unspecified organism Status: Acute Assessment and Plan: -plan as above (5) Chest pain: Code(s): R07.9 - Chest pain, unspecified Status: Acute Assessment and Plan: -was apparently complaining of chest tightness on arrival to ED but tells me her pain has resolved -trops minimally elevated at 0.110, 0.113, 0.081 but down trending -EKG sinus tachycardia, no ischemic changes -echo from april 2021 reviewed -possibly secondary to copd exacerbation vs pneumonia (6) Elevated troponin: Code(s): R77.8 - Other specified abnormalities of plasma proteins Status: Acute Assessment and Plan: -as above -pt is pain free currently, consider cardiology consult if pain returns DS: Summary Hospital Course Reason for hospitalization: 55 yo F PMHx of anxiety/bipolar disorder, depression, TIA, HFpEF (04/2021 TTE LVEF 60-65% with grade I DD), COPD, h/o lung ca s/p BROOKE lobectomy and later had chemo/RT, who presented to the hospital with chest tightness and sob. Please see HPI for further details. Hospital Course: Please see above for details of hospital course. Status at Discharge Cognitive/behavioral status at discharge: stable Functional status at discharge: independent ambulation Overall status at discharge: patient is progressing back to baseline Time Spent with Patient Time attestation: Total time spent providing and/or coordinating discharge services: 35 Time spent: Greater than 30 minutes Exam Narrative: General: No acute distress, non toxic Eyes: PERRL, no scleral icterus HEENT: NCAT, external ears normal, edentulous, mucous membranes moist Respiratory: No respiratory distress, diminished lung sounds throughout, no wheezing Cardiovascular: RRR, no murmur Abdominal: Soft, nontender, non distended, no rebound or guarding Musculoskeletal: Moves all 4 extremities, no edema Neurological: A/Ox3, no facial asymmetry, cranial nerves II-XII grossly intact Skin: Warm, dry, no rashes Psychiatric: Normal affect, normal mood DS: Data Data Completed and Pending Labs on day of discharge: Labs from last 24 hours 07/12/21 07/12/21 0
[2021-07-12] MEDS: ESCITALOPRAM OXALATE 10 MG TABLET PO (09:13)
[2021-07-12] MEDS: FAMOTIDINE 20 MG TABLET PO (09:13)
[2021-07-12] MEDS: CLOPIDOGREL BISULFATE 75 MG TABLET PO (09:13)
[2021-07-12] MEDS: MONTELUKAST SODIUM 10 MG TABLET PO (09:13)
[2021-07-12] MEDS: methylPREDNISolone SOD SUCC 125 MG VIAL 60 MG IV PUSH (09:13)
[2021-07-12] MEDS: NICOTINE (*PBKC) 21 MG PATCH 1 PATCH TRANSDERM (09:13)
[2021-07-12] MEDS: ATORVASTATIN 40 MG TABLET PO (09:13)
[2021-07-12] MEDS: ASPIRIN 81 MG ENTERIC TABLET PO (09:13)
[2021-07-12 12:00] VITALS: PULSE 105
== END 2021-07-12 14:30 | disposition home or self-care (01) | DRG 45 ==
LOC: ANHED 22:56 → ANHIMU 07-08 04:56 → ANH3MEDSUR 07-10 14:26
PROVIDERS: Admitting Provider Internal Medicine; Emergency Provider Emergency Medicine; PCP Internal Medicine; Visit Provider Physician Assistant
DX: I63.9 Cerebral infarction, unspecified (principal); G93.41 Metabolic encephalopathy; J18.9 Pneumonia, unspecified organism; J44.0 Chronic obstructive pulmonary disease with (acute) lower respiratory infection; R07.9 Chest pain, unspecified; R00.0 Tachycardia, unspecified; R77.8 Other specified abnormalities of plasma proteins; Z20.822 Contact with and (suspected) exposure to COVID-19; R90.82 White matter disease, unspecified; I50.30 Unspecified diastolic (congestive) heart failure; Z85.118 Personal history of other malignant neoplasm of bronchus and lung; F31.9 Bipolar disorder, unspecified; Z92.21 Personal history of antineoplastic chemotherapy; Z79.899 Other long term (current) drug therapy; Z79.82 Long term (current) use of aspirin; Z90.2 Acquired absence of lung [part of]; Z86.73 Personal history of transient ischemic attack (TIA), and cerebral infarction without residual deficits; Z92.3 Personal history of irradiation; F41.9 Anxiety disorder, unspecified; Z87.01 Personal history of pneumonia (recurrent)
CPT/HCPCS: 36415; 36569; 36600; 70450; 70551; 71045; 71275; 80048; 80053; 80307; 81001; 82375; 82805; 83050; 83605; 83880; 84484; 85025; 85380; 93005; 93306; 93880; 94640; 96365; 96366; 96368; 96374; 96375; 96376; 99285; A9270; C1751; C9803; G0378; J0456; J0696; J1200; J2060; J2930; Q9967; U0003; U0005